=== PATIENT | male | born 1970 | race Two or more races ===

== ENCOUNTER 2025-04-29 13:07 | Inpatient (IN) | payer MEDICAID, OTHER ==
[~2025-04-29] VITALS: Ht 182.9 cm; Wt 101.0 kg
[~2025-04-29 13:07] MED LIST: LISI10TA34
--- NOTE | 2025-04-29 13:33 | ECG ---
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
[2025-04-29 13:43] LABS: Hematocrit 44.6 % (41.0-53.0); Hemoglobin 14.5 g/dL (13.5-17.5); Mean Corpuscular Hemoglobin 26.6 pg (28.0-32.0); Mean Corpuscular Volume 81.4 fL (80.0-100.0); Nucleated Red Blood Cells % 0.1 %
[2025-04-29 13:44] LABS: Chloride 104 mmol/L (98-107); Potassium 4.8 mmol/L (3.5-5.1); Sodium 141 mmol/L (136-145)
[2025-04-29 13:45] LABS: Anion Gap 5 (5-15)
[2025-04-29 13:46] LABS: Calcium 9.1 mg/dL (8.7-10.4)
[2025-04-29 13:49] LABS: Carbon Dioxide 32 mmol/L (20-31)
[2025-04-29 13:50] LABS: BUN/Creatinine Ratio 19.6 (10.0-20.0); Blood Urea Nitrogen 19 mg/dL (9-23); Glucose 86 mg/dL (74-106)
--- NOTE | 2025-04-29 13:50 | DVH ---
CLINICAL HISTORY: CP TECHNIQUE: Single view of the chest was obtained. COMPARISON: CT ANGIO CHEST - AORTA on DOS: 03/09/25, XR CHEST 1 VIEW on DOS: 03/09/25, XR CHEST 1 VIEW on DOS: 02/07/25, XR CHEST 1 VIEW on DOS: 05/26/24 FINDINGS: The heart size and pulmonary vasculature are normal. The lungs are clear. IMPRESSION: NO ACUTE CARDIOPULMONARY PROCESS.
--- NOTE | 2025-04-29 13:55 | ECG ---
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
--- NOTE | 2025-04-29 14:31 | ED.PDOC ---
History of Present Illness HPI Comments 54M BIBA w/ prior MHx of HTN, [place], High Lipids:SHx of Cardiac Stent placed recently and maria atnonia c/c of CP. Pt was picked up at a skilled nursing center due from the pt having dove left sided CP since 0600 this morning which was a 8/10 on the pain scale associated w/ N/ and dizziness. The skilled nursing center gave the pt 1 nitro which brought the pain down to 5/10. en rout to the ED the pt was given 324 of aspirin and .4mg of nitro, 4 of zofran which prompted the pain to decrease. Pt notes on not being able to take his plavix medications for the past 3 days due from being in custody. Denies any symptoms at this time. Patient denies any SOB, dizziness, numbness, weakness, tingling, fever, chills, or recent fall. Chief Complaint: Chest Pain Time Seen by MD: 14:00 Reviewed Notes: Nurses Notes, Medications, Allergies Allergies: Coded Allergies: NO KNOWN ALLERGIES (Unverified , 08/20/10) Home Meds Reported Medications Lisinopril (Lisinopril) 10 Mg Tab, DAILY 08/20/10 Information Source: Patient, Law Enforcement, Emergency Med Personnel Mode of Arrival: EMS Severity: Moderate Timing: Hours Duration: Since onset, Hours Prehospital treatment: None Past Medical History PAST MEDICAL HISTORY: High Lipids, HTN, [place] Surgical History (Other): Cardiac Stent Placed Family History Family History: Reviewed,noncontributory to illness, Unknown Social History Smoker: Non-Smoker Alcohol: Denies ETOH Use Drugs: Denies Drug Use Lives In: Home Constitutional: denies: chills, diaphoresis, fatigue, fever, malaise, sweats, weakness, others EENTM: denies: blurred vision, double vision, ear bleeding, ear discharge, ear drainage, ear pain, ear ringing, eye pain, eye redness, hearing loss, mouth pain, mouth swelling, nasal discharge, nose bleeding, nose congestion, nose pain, photophobia, tearing, throat pain, throat swelling, voice changes, others Respiratory: denies: cough, hemoptysis, orthopnea, SOB at rest, shortness of breath, SOB with excertion, stridor, wheezing, others Cardiovascular: reports: chest pain; denies: dizzy spells, diaphoresis, Dyspnea on exertion, edema, irregular heart beat, left arm pain, lightheadedness, palpitations, PND, syncope, others Gastrointestinal: reports: nausea; denies: abdomen distended, abdominal pain, blood streaked bowels, constipated, diarrhea, dysphagia, difficulty swallowing, hematemesis, melena, poor appetite, poor fluid intake, rectal bleeding, rectal pain, vomiting, others Genitourinary: denies: burning, dysuria, flank pain, frequency, hematuria, incontinence, penile discharge, penile sore, pain, testicle pain, testicle swelling, urgency, others Neurological: reports: dizziness; denies: fainting, headache, left sided numbness, left sided weakness, numbness, paresthesia, pre-existing deficit, right sided numbness, right sided weakness, seizure, speech problems, tingling, tremors, weakness, others Musculoskeletal: denies: back pain, gout, joint pain, joint swelling, muscle pain, muscle stiffness, neck pain, others Integumetry: denies: bruises, change in color, change in hair/nails, dryness, laceration, lesions, lumps, rash, wounds, others Allergic/Immunocompromised: denies: Difficulty Healing, Frequent Infections, Hives, Itching, others Hematologic/Lymphatic: denies: anemia, blood clots, easy bleeding, easy bruising, swollen glands, others Endocrine: denies: excessive hunger, excessive sweating, excessive thirst, excessive urination, flushing, intolerance to cold, intolerance to heat, unexplained weight gain, unexplained weight loss, others Psychiatric: denies: anxiety, bipolar disorder, depression, hopeless, panic disorder, schizophrenia, sleepless, suicidal, others All Other Systems: Reviewed and Negative Physical Exam General Appearance: Moderate Distress, Normal HEENT: Normal ENT Inspection, Pharynx Normal, TMs Normal Neck: Full Range of Motion, Non-Tender, Normal, Normal Inspection Respiratory: Chest Non-Tender, Lungs Clear, No Accessory Muscle Use, No Respiratory Distress, Normal Breath Sounds Cardiovascular: No Edema, No JVD, No Murmur, No Gallop, Normal Peripheral Pulses, Regular Rate/Rhythm Breast Exam: Deferred Gastrointestinal: No Organomegaly, Non Tender, No Pulsatile Mass, Normal Bowel Sounds, Soft Genitalia: Deferred Pelvic: Deferred Rectal: Deferred Extremities: No calf tenderness, Normal capillary refill, Normal inspection, Normal range of motion, Non-tender, No pedal edema Musculoskeletal : Apperance: Normal Neurologic: Alert, 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 Was a procedure done?: No Differential Dx Considerations may include: Anemia Electrolyte imbalance X-Ray, Labs, Meds, VS Vital Signs Date Time Temp Pulse Resp B/P (MAP) Pulse Ox O2 Delivery O2 Flow Rate FiO2 04/29/25 13:53 57 04/29/25 13:15 98.7 58 16 119/79 98 98.7 04/29/25 13:10 56 Lab Test 04/29/25 14:11 04/29/25 13:21 Range/Units Troponin I High Sensitivity 12 11 </=54 ng/L White Blood Count 6.6 4.4-10.8 10^3/uL Red Blood Count 5.48 4.5-5.90 10^6/uL Hemoglobin 14.5 13.5-17.5 g/dL Hematocrit 44.6 41.0-53.0 % Mean Corpuscular Volume 81.4 80.0-100.0 fL Mean Corpuscular Hemoglobin 26.6 L 28.0-32.0 pg Mean Corpuscular Hemoglobin Concent 32.6 32.0-36.0 g/dL Red Cell Distribution Width 13.9 11.8-14.3 % Platelet Count 235 140-450 10^3/uL Mean Platelet Volume 6.9 6.9-10.8 fL Neutrophils (%) (Auto) 53.3 37.0-80.0 % Lymphocytes (%) (Auto) 25.0 10.0-50.0 % Monocytes (%) (Auto) 10.5 0.0-12.0 % Eosinophils (%) (Auto) 10.2 H 0.0-7.0 % Basophils (%) (Auto) 1.0 0.0-2.0 % Neutrophils # (Auto) 3.5 1.6-8.6 10 ^3/uL Lymphocytes # (Auto) 1.7 0.4-5.4 10 ^3/uL Monocytes # (Auto) 0.7 0-1.3 10 ^3/uL Eosinophils # (Auto) 0.7 0-0.8 10 ^3/uL Basophils # (Auto) 0.1 0-0.2 10 ^3/uL Nucleated Red Blood Cells 0.1 % Sodium Level 141 136-145 mmol/L Potassium Level 4.8 3.5-5.1 mmol/L Chloride Level 104 98-107 mmol/L Carbon Dioxide Level 32 H 20-31 mmol/L Anion Gap 5 5-15 Blood Urea Nitrogen 19 9-23 mg/dL Creatinine 0.97 0.700-1.30 mg/dL Glomerular Filtration Rate Calc 93 >90 mL/min BUN/Creatinine Ratio 19.6 10.0-20.0 Serum Glucose 86 74-106 mg/dL Calcium Level 9.1 8.7-10.4 mg/dL Patient alert. Complaining of chest discomfort. Vitals stable. Answering questions. History of coronary artery disease with stent placement. WBC within normal limits. Hemoglobin within normal limits. Cardiac marker within normal limits. EKG reviewed does show old changes. Was given aspirin. Was given nitro. Was given morphine. Was given Zofran. Explained to the patient. Continue monitoring. Time of 1ST Reevaluation: 14:30 Reevaluation 1ST: Unchanged Patient Education/Counseling: Diagnosis, Treatment, Prognosis Family Education/Counseling: Diagnosis, Treatment, Prognosis, Other (SO) SEPSIS Sepsis Screen Date sepsis recognized/suspect: Apr 29, 2025 Time Sepsis recognized/suspect: 1314 Recent Procedure: No On Antibiotic Therapy: No Respiratory Rate >20: No Heart Rate >90: No Temp<36 C (96.8 F) or >38.3 C: No SBP <90 or MAP <65 mmHG: No New Acute Mental Status Change: No Is the patient on CPAP, BIPAP,: No Physician Orders Chest Portable (04/29/25 13:11) Troponin-I Hs (04/29/25 16:11) Electrocardigram (04/29/25 16:11) Vital Signs Date Time Temp Pulse Resp B/P (MAP) Pulse Ox O2 Delivery O2 Flow Rate FiO2 04/29/25 13:53 57 04/29/25 13:15 98.7 58 16 119/79 98 98.7 04/29/25 13:10 56 Laboratory Tests Test 04/29/25 13:21 White Blood Count 6.6 10^3/uL (4.4-10.8) Departure 1 Departure Time of Disposition: 15:18 Impression: Primary Impression: Chest pain of unknown etiology Disposition: ADMITTED INPATIENT Admit to: Med Surg Condition: Guarded Critical Care Note Critical Care Time?: Yes (90 min-critical care time only) Stability Stability form required: No Heart Score Heart Score: Heart Score Response (Comments) Value History Slightly Suspicious 0 EKG Normal 0 Age 45-64 1 Risk Factors >3 or Hx ASHD 2 Troponin Normal limit 0 Total 3 I personally scribed for RANI VALDOVINOS MD ([email or web address]) on 04/29/25 at 14:31. Electronically submitted by Ranjan Ward ([email or web address]). RANI VALDOVINOS MD Apr 29, 2025 14:31
[2025-04-29] MEDS: NITROGLYCERIN 0.4 MG SL TAB SL ONE (15:31)
[2025-04-29 17:08] VITALS: O2SAT 98
[2025-04-29] MEDS: ONDANSETRON HCL 4 MG/2 ML VIAL IV ONE (18:59)
[2025-04-29] MEDS: MORPHINE SULFATE 4 MG/ML SYR/VIAL IV ONE (19:02)
[2025-04-29 19:20] VITALS: PULSE 72; O2SAT 98
--- NOTE | 2025-04-29 22:30 | DVHHPRES ---
History of Present Illness Resident Creating Document: KAT BUNCH RESIDENT History of Present Illness This is a 54-year-old male with past medical history of HTN, NH s/p 2 stent month ago in [facility], HLD growth by EMS due to substernal chest pain which started 2 days and worsen since morning, 8/10 intensity, localized, pressure sensation, aggravated on movement and mild relieved on nitroglycerin sublingual tablets. Patient receives nitroglycerin and aspirin [address] to hospital and now chest pain trending down to 4/10 intensity. Patient also stated, another 2 cardiac stent placed 05/2024 in [facility]. Patient currently denies any fever, headache, SOB, cough, abdominal pain, dysuria or any focal weakness. Past medical history: As above Past surgical history: Angiogram x2 (05/2024 and 03/2025) Personal history: Cigarette smoking and quit years ago, ETOH use, denies any illicit drugs Family history: Nothing contributory Allergy: No known allergy PCP: Not selected Home medication: Aspirin, Plavix, metoprolol, atorvastatin. Review of Systems Constitutional: Yes: Malaise; No: Fever, Chills, Sweats, Weakness, Other Eyes: No: Pain, Vision change, Conjunctivae inflammation, Eyelid inflammation, Other, Redness ENT: No: Ear pain, Ear discharge, Nose pain, Nose discharge, Nose congestion, Mouth pain, Mouth swelling, Throat pain, Throat swelling, Other Respiratory: No: Cough, Dry, Shortness of breath, SOB with excertion, Wheezing, Hemoptysis, Pleuritic Pain, Sputum, Wheezing, Other Cardiovascular: Chest Pain, Lt Headedness; No: Palpitations, Orthopnea, Paroxysmal Noc. Dyspnea, Edema, Other Gastrointestinal: No: Nausea, Vomiting, Abdominal Pain, Diarrhea, Constipation, Melena, Hematochezia, Other Genitourinary: No Dysuria, No Frequency, No Incontinence, No Hematuria, No Retention, No Other Musculoskeletal: No: other, neck pain, shoulder pain, arm pain, back pain, hand pain, leg pain, foot pain Skin: No: Rash, Lesions, Jaundice, Bruising, Other Neurological: No: Weakness, Numbness, Incoordination, Change in speech, Confusion, Seizures, Other Allergies: Coded Allergies: NO KNOWN ALLERGIES (Unverified , 08/20/10) Exam Vital Signs Vital Signs Date Time Temp Pulse Resp B/P (MAP) Pulse Ox O2 Delivery O2 Flow Rate FiO2 04/29/25 22:00 72 17 112/75 (87) 97 04/29/25 19:20 Room Air* 0 21 04/29/25 19:20 97.7 97.7 General Appearance: Alert, Oriented X3, Cooperative, mild distress HEENT: Atraumatic, PERRLA, EOMI Respiratory: Clear to auscultation, Normal air movement Cardiovascular: Regular rate, Normal S1, Normal S2, Other (Sternal area tender on deep palpation) Abdominal: Normal bowel sounds, Soft, No tenderness, No hepatospenomegaly Extremities: No clubbing, No cyanosis, No edema, Normal pulses Skin: No rashes, No breakdown, No significant lesion Neuro: Normal gait, Normal speech, Strength at 5/5 X4 ext, Sensation intact Labs/Xrays Labs Test 04/29/25 16:14 04/29/25 13:21 Range/Units Troponin I High Sensitivity 11 </=54 ng/L White Blood Count 6.6 4.4-10.8 10^3/uL Red Blood Count 5.48 4.5-5.90 10^6/uL Hemoglobin 14.5 13.5-17.5 g/dL Hematocrit 44.6 41.0-53.0 % Mean Corpuscular Volume 81.4 80.0-100.0 fL Mean Corpuscular Hemoglobin 26.6 L 28.0-32.0 pg Mean Corpuscular Hemoglobin Concent 32.6 32.0-36.0 g/dL Red Cell Distribution Width 13.9 11.8-14.3 % Platelet Count 235 140-450 10^3/uL Mean Platelet Volume 6.9 6.9-10.8 fL Neutrophils (%) (Auto) 53.3 37.0-80.0 % Lymphocytes (%) (Auto) 25.0 10.0-50.0 % Monocytes (%) (Auto) 10.5 0.0-12.0 % Eosinophils (%) (Auto) 10.2 H 0.0-7.0 % Basophils (%) (Auto) 1.0 0.0-2.0 % Neutrophils # (Auto) 3.5 1.6-8.6 10 ^3/uL Lymphocytes # (Auto) 1.7 0.4-5.4 10 ^3/uL Monocytes # (Auto) 0.7 0-1.3 10 ^3/uL Eosinophils # (Auto) 0.7 0-0.8 10 ^3/uL Basophils # (Auto) 0.1 0-0.2 10 ^3/uL Nucleated Red Blood Cells 0.1 % Sodium Level 141 136-145 mmol/L Potassium Level 4.8 3.5-5.1 mmol/L Chloride Level 104 98-107 mmol/L Carbon Dioxide Level 32 H 20-31 mmol/L Anion Gap 5 5-15 Blood Urea Nitrogen 19 9-23 mg/dL Creatinine 0.97 0.700-1.30 mg/dL Glomerular Filtration Rate Calc 93 >90 mL/min BUN/Creatinine Ratio 19.6 10.0-20.0 Serum Glucose 86 74-106 mg/dL Calcium Level 9.1 8.7-10.4 mg/dL SEPSIS Sepsis Screen Date sepsis recognized/suspect: Apr 29, 2025 Time Sepsis recognized/suspect: 1919 Recent Procedure: No On Antibiotic Therapy: No Respiratory Rate >20: No Heart Rate >90: No Temp<36 C (96.8 F) or >38.3 C: No SBP <90 or MAP <65 mmHG: No New Acute Mental Status Change: No Is the patient on CPAP, BIPAP,: No Vital Signs Date Time Temp Pulse Resp B/P (MAP) Pulse Ox O2 Delivery O2 Flow Rate FiO2 04/29/25 22:00 72 17 112/75 (87) 97 04/29/25 19:20 72 98 Room Air* 0 21 04/29/25 19:20 97.7 54 13 121/80 (94) 98 97.7 04/29/25 19:15 60 16 126/86 (99) 96 04/29/25 19:02 63 19 128/86 04/29/25 17:08 98 Room Air* 0 21 04/29/25 17:08 97.5 65 16 125/84 (98) 98 97.5 04/29/25 16:18 111/76 04/29/25 15:31 121/81 Laboratory Tests Test 04/29/25 13:21 White Blood Count 6.6 10^3/uL (4.4-10.8) Medications Medications Dose Ordered Sig/Chacorta Route Start Time Stop Time Status Last Admin Dose Admin Aspirin 325 mg ONCE ONCE PO 04/29/25 15:30 04/29/25 15:31 DC 04/29/25 19:00 325 MG Morphine Sulfate 4 mg ONCE ONCE IV 04/29/25 15:30 04/29/25 15:31 DC 04/29/25 19:02 4 MG Nitroglycerin 0.4 mg ONCE ONCE SL 04/29/25 15:30 04/29/25 15:31 DC 04/29/25 15:31 0.4 MG Ondansetron HCl 4 mg ONCE ONCE IV 04/29/25 15:30 04/29/25 15:31 DC 04/29/25 18:59 4 MG Assessment/Plan Assessment/Plan Chest pain rule out acute coronary syndrome History of NH s/p coronary stent Hypertensive heart disease Hyperlipidemia Costochondritis In ER patient received nitroglycerin, aspirin, ondansetron, morphine EKG: HR 56, QTC 440, no acute ST changes Troponin: 11> 12> 11 CXR: No acute cardiopulmonary disease Aspirin Plavix Metoprolol Atorvastatin Echocardiogram Follow labs Bradycardia EKG: HR 56, QTC 440, no acute ST changes Follow vitals Diet: Cardiac GI prophylaxis: Famotidine DVT prophylax: Lovenox Goals of care discussions. More than 27 minute spent with patient. Full code status. Case discussed with Dr. Alvarez Plan discussed with: Patient, Other (Nurse) Date of Service: Apr 29, 2025 Billing Provider: JACY ALVAREZ MD Common Visit Codes: [id number] INP/OBS CARE (HIGH) Secondary Visit Codes: [id number] CARE PLAN 30 MINUTES KAT BUNCH RESIDENT Apr 29, 2025 22:30
[2025-04-29] MEDS: CLOPIDOGREL BISULFATE 75 MG TAB PO ONE (22:58)
[2025-04-29] MEDS: ATORVASTATIN 20 MG TAB PO ONE (22:58)
[2025-04-29] MEDS: SODIUM CHLORIDE 0.9% 1,000 ML IV SCH (22:58)
[2025-04-29 23:30] VITALS: BP 143/95; PULSE 68; RESP 17; TEMP 97.8; O2SAT 97
[2025-04-30] VITALS (8 sets, daily range): BP systolic 109–143; BP diastolic 74–96; PULSE 52–80; RESP 17–18; TEMP 97.7–98.9; O2SAT 96–98
[2025-04-30 05:56] LABS: Hemoglobin 13.7 g/dL (13.5-17.5)
[2025-04-30 05:58] LABS: Hematocrit 40.4 % (41.0-53.0); Mean Corpuscular Hemoglobin 27.4 pg (28.0-32.0); Mean Corpuscular Volume 80.4 fL (80.0-100.0); Nucleated Red Blood Cells % 0.2 %
[2025-04-30 06:16] LABS: Alanine Aminotransferase 24 U/L (7-40); Albumin 3.6 g/dL (3.2-4.8); Alkaline Phosphatase 76 U/L (46-116); Anion Gap 8 (5-15); BUN/Creatinine Ratio 17.1 (10.0-20.0); Blood Urea Nitrogen 18 mg/dL (9-23); Calcium 8.7 mg/dL (8.7-10.4); Carbon Dioxide 28 mmol/L (20-31); Chloride 106 mmol/L (98-107); Glucose 75 mg/dL (74-106); Potassium 3.8 mmol/L (3.5-5.1); Sodium 142 mmol/L (136-145); Total Protein 6.2 g/dL (5.7-8.2)
[2025-04-30 06:17] LABS: Bilirubin, Total 0.3 mg/dL (0.2-1.0); Cholesterol 137 mg/dL (< 200)
[2025-04-30 06:27] LABS: HDL Cholesterol 30 mg/dL (40-59); Triglycerides 207 mg/dL (< 150)
[2025-04-30] MEDS: FAMOTIDINE 20 MG TAB PO SCH (11:50)
[2025-04-30] MEDS: CLOPIDOGREL BISULFATE 75 MG TAB PO SCH (11:51)
[2025-04-30] MEDS: ASPirin-EC 81 mg tab PO SCH (11:52)
[2025-04-30] MEDS: METOPROLOL SUCCINATE XL 50 MG TAB PO SCH (11:52)
[2025-04-30] MEDS: ENOXAPARIN SOD 40 MG/0.4 ML SYRINGE SC SCH (11:53)
--- NOTE | 2025-04-30 12:20 | DVHINCON2 ---
ANNALEE LEE EDITOR TRADE JOURNAL 04/30/25 1220: Date Seen: Apr 30, 2025 Referring Physician MD [place] resident Reason for Consultation Chest pain, recent PCI with stent History of Present Illness This is a 54-year-old male patient who presents to the emergency room with chief complaint of chest pain. The patient comes from [facility]. He reports chest pain that began approximately four days ago. He describes the pain as unprovoked, intermittent, sharp in nature, left-sided and nonradiating. Associated symptoms include shortness of breath. Alleviating factors include nitroglycerin and morphine administration. The patient reports undergoing a recent stent placement (x 2 JANEL) at [facility] last month. He states that the [facility] has not been providing him with his aspirin and Plavix for approximately one week. Initial twelve lead electrocardiogram reveals sinus bradycardia with Q-waves seen in inferior leads and nonspecific ST depression to lateral leads. Initial troponin level of 11ng/L with flat trend thereafter. Significant past medical history includes coronary artery disease status post PTCA x 4 JANEL (on ASA/Plavix), myocardial infarction, hypertension, and dyslipidemia. Past Medical History Past medical history reviewed. No other significant than mentioned above. Past Surgical History Coronary angiogram status post PCI X 2 JANEL at [facility] (Mar 2025) Coronary angiogram status post PCI X 2 JANEL at [facility] (May 2024) Family History Family history reviewed. Social History Patient has a 20 pack-year history, quit smoking approximately one year ago Denies illicit drug use Denies alcohol use Allergies: Coded Allergies: NO KNOWN ALLERGIES (Unverified , 08/20/10) Home Meds Reported Medications Lisinopril (Lisinopril) 10 Mg Tab, DAILY 08/20/10 Home Meds Home medications reviewed. Current Medications Current Medications Medications (Trade) Dose Ordered Sig/Chacorta Route PRN Reason Start Time Stop Time Status Last Admin Sodium Chloride 1,000 ml @ 60 mls/hr [id number] IV 04/29/25 22:30 04/30/25 09:43 DC 04/29/25 22:58 Enoxaparin Sodium (Lovenox) 40 mg DAILY SC 04/30/25 10:00 04/30/25 11:53 Acetaminophen (Tylenol Tablet) 650 mg Q6HP PRN PO PAIN SCALE 1-3 OR TEMP>100.4 04/29/25 22:30 Nitroglycerin (Ntrostat Sublingual) 0.4 mg Q5MINP PRN SL FOR CHEST PAIN 04/29/25 22:30 Morphine Sulfate 2 mg Q30M PRN IV FOR CHEST PAIN 04/29/25 22:30 Metoprolol Succinate (Toprol Xl) 50 mg DAILY PO 04/30/25 10:00 04/30/25 11:52 Aspirin (Ecotrin Enteric Coated Tablet) 81 mg DAILY PO 04/30/25 10:00 04/30/25 11:52 Clopidogrel Bisulfate (Plavix) 75 mg DAILY PO 04/30/25 10:00 04/30/25 11:51 Famotidine (Pepcid Tablet) 20 mg Q12HR PO 04/30/25 10:00 04/30/25 11:50 Atorvastatin Calcium (Lipitor) 40 mg HS PO 04/30/25 22:00 Review of Systems Constitutional: No symptom reported Ears, Nose, & Throat: No symptom reported Eyes: No symptom reported Neurological: No symptoms reported Pulmonary/Respiratory: Shortness of breath Cardiovascular: Chest pain Gastrointestinal: No symptom reported Genitourinary: No symptom reported Musculoskeletal: No symptom reported Skin: No symptom reported Psychiatric: No symptom reported Endocrine: No symptom reported Hematologic/Lymphatic: No symptom reported Vital Signs Vital Signs Date Time Temp Pulse Resp B/P (MAP) Pulse Ox O2 Delivery O2 Flow Rate FiO2 04/30/25 11:52 62 115/76 04/30/25 09:00 98.9 17 96 98.9 04/30/25 00:09 Room Air* 0 21 Physical Exam General Appearance: Cooperative. Well-developed. Well-nourished. No acute distre ss. Pulmonary/Respiratory: Clear, bilateral breaths sounds. Cardiovascular/Chest: Regular rate and rhythm. Peripheral Pulses: 2+ Radial (R). 2+ Radial (L). 2+ Pedal (R). 2+ Pedal (L) Abdominal Exam: Normal bowel sounds. Ankle Exam: Negative ankle edema Lower extremities: Negative lower extremity edema Neuro/Mental Status: A/OX4, coherent. Thoughts/Psych: Normal thought pattern. Appropriate mood and affect. Good judgment and insight. Appearance: No acute distress. Skin Exam: Normal inspection. Normal color. Warm and dry. Labs/Diagnostic Data Labs Test 04/30/25 04:40 11/26/25 16:14 Range/Units White Blood Count 5.9 4.4-10.8 10^3/uL Red Blood Count 5.02 4.5-5.90 10^6/uL Hemoglobin 13.7 13.5-17.5 g/dL Hematocrit 40.4 L 41.0-53.0 % Mean Corpuscular Volume 80.4 80.0-100.0 fL Mean Corpuscular Hemoglobin 27.4 L 28.0-32.0 pg Mean Corpuscular Hemoglobin Concent 34.1 32.0-36.0 g/dL Red Cell Distribution Width 13.6 11.8-14.3 % Platelet Count 209 140-450 10^3/uL Mean Platelet Volume 7.3 6.9-10.8 fL Neutrophils (%) (Auto) 45.3 37.0-80.0 % Lymphocytes (%) (Auto) 31.2 10.0-50.0 % Monocytes (%) (Auto) 11.9 0.0-12.0 % Eosinophils (%) (Auto) 10.6 H 0.0-7.0 % Basophils (%) (Auto) 1.0 0.0-2.0 % Neutrophils # (Auto) 2.7 1.6-8.6 10 ^3/uL Lymphocytes # (Auto) 1.9 0.4-5.4 10 ^3/uL Monocytes # (Auto) 0.7 0-1.3 10 ^3/uL Eosinophils # (Auto) 0.6 0-0.8 10 ^3/uL Basophils # (Auto) 0.1 0-0.2 10 ^3/uL Nucleated Red Blood Cells 0.2 % Sodium Level 142 136-145 mmol/L Potassium Level 3.8 3.5-5.1 mmol/L Chloride Level 106 98-107 mmol/L Carbon Dioxide Level 28 20-31 mmol/L Anion Gap 8 5-15 Blood Urea Nitrogen 18 9-23 mg/dL Creatinine 1.05 0.700-1.30 mg/dL Glomerular Filtration Rate Calc 84 >90 mL/min BUN/Creatinine Ratio 17.1 10.0-20.0 Serum Glucose 75 74-106 mg/dL Hemoglobin A1c 5.3 <5.7 % A1C Calcium Level 8.7 8.7-10.4 mg/dL Total Bilirubin 0.3 0.2-1.0 mg/dL Aspartate Amino Transferase (AST) 19 13-40 U/L Alanine Aminotransferase (ALT) 24 7-40 U/L Alkaline Phosphatase 76 46-116 U/L Total Protein 6.2 5.7-8.2 g/dL Albumin 3.6 3.2-4.8 g/dL Triglycerides Level 207 H < 150 mg/dL Cholesterol Level 137 < 200 mg/dL LDL Cholesterol 76 < 100 mg/dL HDL Cholesterol 30 L 40-59 mg/dL Vitamin B12 Level 457 211-911 pg/mL Vitamin D 25-Hydroxy 25.3 L 30.0-100 ng/mL Thyroid Stimulating Hormone (TSH) 1.15 0.55-4.78 uIU/mL Troponin I High Sensitivity 11 </=54 ng/L Assessment Chest pain, rule out InStent restenosis/thrombosis Coronary artery disease s/p PTCA x 4 JANEL (on Plavix and aspirin) History myocardial infarction Hypertension Dyslipidemia Plan/Recommendation We will continue with the following plan/recommendations (Dr. Min): * Transthoracic echocardiogram to evaluate cardiac function * Chest pain protocol * HEART score: 5 points * Continue dual antiplatelet therapy * Lipid-lowering agent * BP control * Close cardiac surveillance * Nuclear stress test Patient seen and evaluated at bedside with . The patient was offered an inpatient nuclear stress test. Patient is agreeable. We will schedule the patient at soonest availability. Thank you for allowing us to care for this patient. Please call with any questions or concerns. Critical care time spent: 44 minutes This medical document was created using an electronic medical record system with voice recognition software and computerized dictation system. Although this document has been carefully reviewed, there might still be some phonetic and typographical errors. Occasional wrong-word or ``sound-alike substitutions may have occurred due to the inherent limitations of voice recognition software. These areas are purely typographical due to imperfections of the software programs and do not reflect any compromise in the patient's medical care. Pl ease read the chart carefully and recognize, using context, where these substitutions have occurred. Plan discussed with: Patient NYHA Physical activity limitations: NA Date of Service: Apr 30, 2025 Billing Provider: ANNALEE LEE Cardiology Common Codes: [id number] INP/OBS CARE (High) Cardiology Consultation Codes: [id number] CONSULT <45MIN PREM MIN MD 04/30/25 1532: Allergies: Coded Allergies: NO KNOWN ALLERGIES (Unverified , 08/20/10) Home Meds Reported Medications Lisinopril (Lisinopril) 10 Mg Tab, DAILY 08/20/10 Plan/Recommendation chest pain seen with [employer] and agree with assessment and plan ruled out for acs [facility]nt [facility] just had pci done 1 month ago , no other information regarding this lexiscan s tress mpi once stress lab is open Plan discussed with: Patient LEEANNALEE PENALOZA Lindsey EDITOR TRADE JOURNAL Apr 30, 2025 12:20 PREM MIN MD Apr 30, 2025 15:32
--- NOTE | 2025-04-30 14:01 | DVHSR ---
APPROVED REPORT EXAM: Two-dimensional and M-mode echocardiogram with Doppler and color Doppler. Blood Pressure: 131/88 mmHg INDICATION Chest Pain History of Coronary Stent RISK FACTORS Height: 6', Weight: 222 DIMENSIONS LVDd 4.9 (3.8-5.7cm) LA (2D) 4.0 (1.9-4.0cm) Aortic Root 4.0 (2.0-3.7cm) LVDs 3.4 (2.5-4.0cm) LA (MM) (1.9-4.0cm) Aortic Cusp Exc 2.1 (1.5-2.0cm) EF (%) 57.0 (55-70%) Rt. Atrium 4.2 (1.9-4.0cm) Asc. Aorta cm IVSd 1.1 (0.7-1.1cm) RV (D) (1.8-2.4cm) PWd 1.0 (0.7-1.1cm) Mitral Valve Mitral Mitral Stenosis E wave 0.50m/s MV Mean GR. mmHg A wave 1.00m/s MV Peak GR. mmHg E/A ratio 0.5 2D MVA cm2 Aortic Valve Aortic Valve Aortic Stenosis V1 0.90m/s AO Mean GR. 5mmHg V2 1.50m/s AO Peak GR. 9mmHg LVOT Diameter 2.3 (1.8-2.4cm) Doppler PATTIE 2.49cm2 Pulmonic Valve V2 0.90m/s Tricuspid Valve TR Velocity 2.30m/s RVSP 30mmHg Conclusion lvef 55% mild to moderate LVH normal rv function no severe valve abnromality noted
--- NOTE | 2025-04-30 15:55 | DVHPNRES ---
Progress Note Date Seen: Apr 30, 2025 Resident Creating Document: CECILIA BUSTILLOS RESIDENT Medical Necessity Reason Pt with a Central, PICC or Fol: No Subjective Review of Systems Conrad Mejia is a 54-year-old male with past medical history of hypertension, CAD s/p PCI with 4 stents (with 2 stents being placed last month), dyslipidemia was brought in from the [facility] into the ED with the chief complaint of chest pain. The patient mentions he started having chest pain 1 week back, which has been constant, left-sided, nonradiating, pressure-like, rated 8/10 in intensity, which increased on exertion. The patient also mentions having shortness of breath since 1 week. He denies any cough or fever. The pain was relieved with nitroglycerin. The patient has a history of placement of 2 stents in May 2024 in [facility] and 2 stent was placed at [facility] last month. The patient mentions he did not get his aspirin and Plavix since [facility] at the [facility]. Echo revealed LVEF of 55% with [id number] LVH. Cardiology evaluated the patient and recommended Cardiolite stress test at the earliest possible availability. Past medical history: hypertension, CAD s/p PCI with 4 stents (with 2 stents being placed last month), dyslipidemia Past surgical history: Angiogram x2 (05/2024 and 03/2025) Personal history: Cigarette smoking 30 pack years, history of heavy alcohol use in the past , denies any illicit drugs Family history: Nothing contributory Allergy: No known allergy Patient seen and examined at bedside. Patient is alert and oriented to time, place person and responding to all questions. Eyes: No Pain, No Vision change, No Conjunctivae inflammation, No Eyelid inflammation, No Redness ENT: No Ear pain, No Ear discharge, No Nose pain, No Nose discharge, No Nose congestion, No Mouth pain, No Mouth swelling, No Throat pain, No Throat swelling Cardiovascular: Chest Pain, No Palpitations, No Orthopnea, No Paroxysmal No Dyspnea, No Edema, No Lt Headedness Respiratory: No Cough, No Dry, Shortness of breath, SOB with exertion, No Wheezing, No Hemoptysis, No Pleuritic Pain, No Sputum Gastrointestinal: No Nausea, No Vomiting, No Abdominal Pain, No Diarrhea, No Constipation, No Melena, No Hematochezia Genitourinary: No Dysuria, No Frequency, No Incontinence, No Hematuria, No Retention Objective vital signs Vital Sign Date Time Temp Pulse Resp B/P (MAP) Pulse Ox O2 Delivery O2 Flow Rate FiO2 04/30/25 13:00 97.7 72 18 113/83 (93) 98 97.7 04/30/25 00:09 Room Air* 0 21 Total Intake and Output 04/29/25 04/29/25 04/30/25 15:00 23:00 07:00 Intake Total 550 ml Balance 550 ml medications Current Medications Medications Dose Ordered Sig/Chacorta Route Start Time Stop Time Status Last Admin Dose Admin Enoxaparin Sodium 40 mg DAILY SC 04/30/25 10:00 04/30/25 11:53 40 MG Acetaminophen 650 mg Q6HP PRN PO 04/29/25 22:30 Nitroglycerin 0.4 mg Q5MINP PRN SL 04/29/25 22:30 Morphine Sulfate 2 mg Q30M PRN IV 04/29/25 22:30 Metoprolol Succinate 50 mg DAILY PO 04/30/25 10:00 04/30/25 11:52 50 MG Aspirin 81 mg DAILY PO 04/30/25 10:00 04/30/25 11:52 81 MG Clopidogrel Bisulfate 75 mg DAILY PO 04/30/25 10:00 04/30/25 11:51 75 MG Famotidine 20 mg Q12HR PO 04/30/25 10:00 04/30/25 11:50 20 MG Atorvastatin Calcium 40 mg HS PO 04/30/25 22:00 Examination General Appearance: Cooperative. Well developed. Well nourished. NAD Head Exam: Normal inspection Neck Exam: Normal inspection. Non-tender. Normal alignment Pulmonary/Respiratory: Chest non-tender. Clear bilateral breath sounds, no crackles, no wheezing. Cardiovascular/Chest: Regular rate and rhythm. No murmurs. No JVD. Peripheral Pulses: 2+ Radial (R). 2+ Radial (L). 2+ Pedal (R). 2+ Pedal (L) Abdominal Exam: Normal bowel sounds. Soft. normal abdomen, no visible veins, Nontender. No hepatospenomegaly. No masses Ankle Exam: Negative ankle edema Lower extremities: Negative lower extremity edema Neuro/Mental Status: A&O x4. Coherent. Thoughts/Psych: Normal thought pattern. Appropriate mood and affect. Good judgement and insight Skin Exam: Normal inspection. Normal color. Warm. Dry laboratory and microbiology Laboratory Tests 04/30/25 04:40 Test 04/30/25 04:40 Range/Units Serum Glucose 75 74-106 mg/dL Labs and/or images reviewed: Labs reviewed by me, Image(s) reviewed by me Problem List/Assessment/Plan Problem List/Assessment/Plan # Chest pain, rule out acute coronary syndrome # History of [place] s/p PTCA x 4 JANEL # Hypertensive heart disease # Hyperlipidemia # Costochondritis, rule out # Dyslipidemia -EKG: no acute ST changes -Troponin: 11> 12> 11 -CXR: No acute cardiopulmonary disease -Aspirin 81 mg p.o. daily and Plavix 75 mg hs p.o., Lipitor 40 hs p.o. -Metoprolol 50 mg daily p.o. -Echocardiogram- LVEF 55%, [id number] LVH -cardiology on board, recommend Cardiolite stress test at the earliest possible availability # Vitamin D deficiency - vit D level is 25.3 - start vit D 50,000 units weekly Diet: Cardiac GI prophylaxis: Famotidine DVT prophylax: Lovenox Goals of care: Full code, discussed for >16 minutes Plan discussed with patient Plan discussed with Dr. Dorman Plan discussed with: Patient My Orders My Orders Orders - CECILIA BUSTILLOS RESIDENT Procedure Category Date Status Time Drug Screen LAB 04/30/25 Logged 07:01 Urinalysis LAB 04/30/25 Logged 07:01 Covid19 Antigen Leena LAB 04/30/25 Logged Rapid Influenza A&B LAB 04/30/25 Logged 09:47 * Cardiology Consult CONS 04/30/25 Transmitted 10:05 PTPTT LAB 04/30/25 Logged 15:17 Date of Service: Apr 30, 2025 Billing Provider: ASIA DORMAN MD Common Visit Codes: [id number] INP/OBS CARE(HIGH) CECILIA BUSTILLOS RESIDENT Apr 30, 2025 15:55 ASIA DORMAN MD May 01, 2025 21:08
[2025-04-30 16:10] LABS: INR 1.03 (0.9-1.15); Partial Thromboplastin Time 26.7 SEC (24.5-34.5); Prothrombin Time 10.9 sec (9.3-11.8)
[2025-04-30] MEDS: ERGOCALCIFEROL 50,000 UNIT(1.25MG) CAP PO SCH (17:08)
[2025-04-30 17:55] LABS: COVID19 ANTIGEN SOFIA FIA NEGATIVE (NEGATIVE)
[2025-04-30] MEDS: ATORVASTATIN 20 MG TAB PO SCH (21:05)
[2025-05-01] VITALS (8 sets, daily range): BP systolic 113–146; BP diastolic 80–97; PULSE 59–77; RESP 16–18; TEMP 97.2–98.6; O2SAT 95–100
[2025-05-01 09:04] LABS: Hematocrit 43.8 % (41.0-53.0); Hemoglobin 14.7 g/dL (13.5-17.5); Mean Corpuscular Hemoglobin 27.0 pg (28.0-32.0); Mean Corpuscular Volume 80.4 fL (80.0-100.0); Nucleated Red Blood Cells % 0.2 %
[2025-05-01 09:10] LABS: Chloride 106 mmol/L (98-107); Potassium 4.5 mmol/L (3.5-5.1); Sodium 141 mmol/L (136-145)
[2025-05-01 09:11] LABS: Anion Gap 6 (5-15); Calcium 9.2 mg/dL (8.7-10.4); Carbon Dioxide 29 mmol/L (20-31)
[2025-05-01 09:16] LABS: BUN/Creatinine Ratio 15.7 (10.0-20.0); Blood Urea Nitrogen 16 mg/dL (9-23); Glucose 83 mg/dL (74-106)
[2025-05-01] MEDS: ONDANSETRON HCL 4 MG/2 ML VIAL IV PRN (11:13)
[2025-05-01] MEDS: MORPHINE SULFATE INJ 2 MG/ml SYRG IV PRN (11:18)
--- NOTE | 2025-05-01 16:02 | DVHPNRES ---
Progress Note Date Seen: May 01, 2025 Resident Creating Document: CECILIA BUSTILLOS RESIDENT Medical Necessity Reason Pt with a Central, PICC or Fol: No Subjective Review of Systems Conrad Mejia is a 54-year-old male with past medical history of hypertension, CAD s/p PCI with 4 stents (with 2 stents being placed last month), dyslipidemia was brought in from the [facility] into the ED with the chief complaint of chest pain. The patient mentions he started having chest pain 1 week back, which has been constant, left-sided, nonradiating, pressure-like, rated 8/10 in intensity, which increased on exertion. The patient also mentions having shortness of breath since 1 week. He denies any cough or fever. The pain was relieved with nitroglycerin. The patient has a history of placement of 2 stents in May 2024 in [facility] and 2 stent was placed at [facility] last month. The patient mentions he did not get his aspirin and Plavix [facility] Echo revealed LVEF of 55% with [id number] LVH. Cardiology evaluated the patient and recommended Cardiolite stress test at the earliest possible availability. Past medical history: hypertension, CAD s/p PCI with 4 stents (with 2 stents being placed last month), dyslipidemia Past surgical history: Angiogram x2 (05/2024 and 03/2025) Personal history: Cigarette smoking 30 pack years, history of heavy alcohol use in the past , denies any illicit drugs Family history: Nothing contributory Allergy: No known allergy Patient seen and examined at bedside. Patient is alert and oriented to time, place person and responding to all questions. Eyes: No Pain, No Vision change, No Conjunctivae inflammation, No Eyelid inflammation, No Redness ENT: No Ear pain, No Ear discharge, No Nose pain, No Nose discharge, No Nose congestion, No Mouth pain, No Mouth swelling, No Throat pain, No Throat swelling Cardiovascular: Chest Pain, No Palpitations, No Orthopnea, No Paroxysmal No Dyspnea, No Edema, No Lt Headedness Respiratory: No Cough, No Dry, Shortness of breath, SOB with exertion, No Wheezing, No Hemoptysis, No Pleuritic Pain, No Sputum Gastrointestinal: No Nausea, No Vomiting, No Abdominal Pain, No Diarrhea, No Constipation, No Melena, No Hematochezia Genitourinary: No Dysuria, No Frequency, No Incontinence, No Hematuria, No Retention 05/01/25- the patient was seen at bedside today. He had no new complaints. We will continue with the same management. Telemetry was reviewed. Was placed NPO in the morning for possible Cardiolite stress test today, but we were informed the Cardiolite stress test will be done on Sunday. We will keep the patient under observation with medical management till the Cardiolite stress test can be done. Questions and concerns were answered. Objective vital signs Vital Sign Date Time Temp Pulse Resp B/P (MAP) Pulse Ox O2 Delivery O2 Flow Rate FiO2 05/01/25 12:00 62 18 146/96 05/01/25 09:00 98.6 98 98.6 05/01/25 08:15 Room Air* 0 21 Total Intake and Output 04/30/25 04/30/25 05/01/25 15:00 23:00 07:00 Intake Total 480 ml Balance 480 ml medications Current Medications Medications Dose Ordered Sig/Chacorta Route Start Time Stop Time Status Last Admin Dose Admin Enoxaparin Sodium 40 mg DAILY SC 04/30/25 10:00 05/01/25 10:00 40 MG Acetaminophen 650 mg Q6HP PRN PO 04/29/25 22:30 Nitroglycerin 0.4 mg Q5MINP PRN SL 04/29/25 22:30 Morphine Sulfate 2 mg Q30M PRN IV 04/29/25 22:30 05/01/25 11:18 2 MG Metoprolol Succinate 50 mg DAILY PO 04/30/25 10:00 05/01/25 10:00 50 MG Aspirin 81 mg DAILY PO 04/30/25 10:00 05/01/25 10:00 81 MG Clopidogrel Bisulfate 75 mg DAILY PO 04/30/25 10:00 05/01/25 10:00 75 MG Famotidine 20 mg Q12HR PO 04/30/25 10:00 05/01/25 10:00 20 MG Atorvastatin Calcium 40 mg HS PO 04/30/25 22:00 04/30/25 21:05 40 MG Ergocalciferol 50,000 unit Q7D PO 04/30/25 16:30 04/30/25 17:08 50,000 UNIT Ondansetron HCl 4 mg Q4HPRN PRN IV 05/01/25 11:00 05/01/25 11:13 4 MG Examination General Appearance: Cooperative. Well developed. Well nourished. NAD Head Exam: Normal inspection Neck Exam: Normal inspection. Non-tender. Normal alignment Pulmonary/Respiratory: Chest non-tender. Clear bilateral breath sounds, no crackles, no wheezing. Cardiovascular/Chest: Regular rate and rhythm. No murmurs. No JVD. Peripheral Pulses: 2+ Radial (R). 2+ Radial (L). 2+ Pedal (R). 2+ Pedal (L) Abdominal Exam: Normal bowel sounds. Soft. normal abdomen, no visible veins, Nontender. No hepatospenomegaly. No masses Ankle Exam: Negative ankle edema Lower extremities: Negative lower extremity edema Neuro/Mental Status: A&O x4. Coherent. Thoughts/Psych: Normal thought pattern. Appropriate mood and affect. Good judgement and insight Skin Exam: Normal inspection. Normal color. Warm. Dry laboratory and microbiology Laboratory Tests 05/01/25 08:28 Test 05/01/25 08:28 Range/Units Serum Glucose 83 74-106 mg/dL Labs and/or images reviewed: Labs reviewed by me, Image(s) reviewed by me Problem List/Assessment/Plan Problem List/Assessment/Plan # Chest pain, rule out acute coronary syndrome # History of [place] s/p PTCA x 4 JANEL # Hypertensive heart disease # Hyperlipidemia # Costochondritis, rule out # Dyslipidemia -EKG: no acute ST changes -Troponin: 11> 12> 11 -CXR: No acute cardiopulmonary disease -Aspirin 81 mg p.o. daily and Plavix 75 mg hs p.o., Lipitor 40 hs p.o. -Metoprolol 50 mg daily p.o. -Echocardiogram- LVEF 55%, [id number] LVH -cardiology on board, recommend Cardiolite stress test to be done on 05/04/25 # Vitamin D deficiency - vit D level is 25.3 - start vit D 50,000 units weekly Diet: Cardiac GI prophylaxis: Famotidine 20 mg p.o. b.i.d. DVT prophylax: Lovenox 40 mg daily SC Goals of care: Full code, discussed for >16 minutes Plan discussed with patient Plan discussed with Dr. Pichardo Plan discussed with: Patient My Orders My Orders Orders - SIBIA,HARNOOR SWARTZ RESIDENT Procedure Category Date Status Time Ergocalciferol PHA 04/30/25 In Process (Vitamin D 50,000 16:30 Ondansetron Hcl PHA 05/01/25 In Process (Zofran) 11:00 Cardiac DIET 05/01/25 Transmitted Diet-2gna,Lofat,Lochol Lunch Date of Service: May 01, 2025 Billing Provider: ASIA PICHARDO MD Common Visit Codes: [id number] INP/OBS CARE(HIGH) CECILIA BUSTILLOS RESIDENT May 01, 2025 16:02 ASIA PICHARDO MD May 01, 2025 21:08
[2025-05-02] VITALS (8 sets, daily range): BP systolic 110–153; BP diastolic 74–88; PULSE 53–107; RESP 15–19; TEMP 97.1–98.7; O2SAT 96–99
[2025-05-02] MEDS: NITROGLYCERIN 0.4 MG SL TAB SL PRN (08:25)
--- NOTE | 2025-05-02 13:34 | DVHPNRES ---
Progress Note Date Seen: May 02, 2025 Resident Creating Document: HARRIETT NICHOLE RESIDENT Medical Necessity Reason Pt with a Central, PICC or Fol: No Subjective Review of Systems Conrad Mejia is a 54-year-old male with past medical history of hypertension, CAD s/p PCI with 4 stents (with 2 stents being placed last month), dyslipidemia was brought in from the [facility] into the ED with the chief complaint of chest pain. The patient mentions he started having chest pain 1 week back, which has been constant, left-sided, nonradiating, pressure-like, rated 8/10 in intensity, which increased on exertion. The patient also mentions having shortness of breath since 1 week. He denies any cough or fever. The pain was relieved with nitroglycerin. The patient has a history of placement of 2 stents in May 2024 in [facility] and 2 stent was placed at [facility] last month. The patient mentions he did not get his aspirin and Plavix since [facility]. Echo revealed LVEF of 55% with [id number] LVH. Cardiology evaluated the patient and recommended Cardiolite stress test at the earliest possible availability. Past medical history: hypertension, CAD s/p PCI with 4 stents (with 2 stents being placed last month), dyslipidemia Past surgical history: Angiogram x2 (05/2024 and 03/2025) Personal history: Cigarette smoking 30 pack years, history of heavy alcohol use in the past , denies any illicit drugs Family history: Nothing contributory Allergy: No known allergy Patient seen and examined at bedside. Patient is alert and oriented to time, place person and responding to all questions. Eyes: No Pain, No Vision change, No Conjunctivae inflammation, No Eyelid inflammation, No Redness ENT: No Ear pain, No Ear discharge, No Nose pain, No Nose discharge, No Nose congestion, No Mouth pain, No Mouth swelling, No Throat pain, No Throat swelling Cardiovascular: Chest Pain, No Palpitations, No Orthopnea, No Paroxysmal No Dyspnea, No Edema, No Lt Headedness Respiratory: No Cough, No Dry, Shortness of breath, SOB with exertion, No Wheezing, No Hemoptysis, No Pleuritic Pain, No Sputum Gastrointestinal: No Nausea, No Vomiting, No Abdominal Pain, No Diarrhea, No Constipation, No Melena, No Hematochezia Genitourinary: No Dysuria, No Frequency, No Incontinence, No Hematuria, No Retention 05/01/25- the patient was seen at bedside today. He had no new complaints. We will continue with the same management. Telemetry was reviewed. Was placed NPO in the morning for possible Cardiolite stress test today, but we were informed the Cardiolite stress test will be done on Sunday morning. We will keep the patient under observation with medical management till the Cardiolite stress test can be done. Questions and concerns were answered. 05/02/2025: Patient seen at bedside. Patient states having 4/10 pressure-like chest pain. Telemetry was reviewed, patient is to have cardiology stress test on Sunday. Patient denies any shortness of breath, palpitations, nausea, vomiting, headaches. Patient also complained of worms in stool, burning sensation in urine. Stool culture ordered. Objective vital signs Vital Sign Date Time Temp Pulse Resp B/P (MAP) Pulse Ox O2 Delivery O2 Flow Rate FiO2 05/02/25 11:07 65 132/88 05/02/25 08:55 97.8 18 97 97.8 05/02/25 08:00 Room Air* 0 21 Total Intake and Output 05/01/25 05/01/25 05/02/25 15:00 23:00 07:00 Intake Total 600 ml 860 ml Balance 600 ml 860 ml medications Current Medications Medications Dose Ordered Sig/Chacorta Route Start Time Stop Time Status Last Admin Dose Admin Enoxaparin Sodium 40 mg DAILY SC 04/30/25 10:00 05/02/25 11:07 40 MG Acetaminophen 650 mg Q6HP PRN PO 04/29/25 22:30 Nitroglycerin 0.4 mg Q5MINP PRN SL 04/29/25 22:30 05/02/25 08:25 0.4 MG Morphine Sulfate 2 mg Q30M PRN IV 04/29/25 22:30 05/02/25 08:23 2 MG Metoprolol Succinate 50 mg DAILY PO 04/30/25 10:00 05/02/25 11:07 50 MG Aspirin 81 mg DAILY PO 04/30/25 10:00 05/02/25 10:55 81 MG Clopidogrel Bisulfate 75 mg DAILY PO 04/30/25 10:00 05/02/25 10:57 75 MG Famotidine 20 mg Q12HR PO 04/30/25 10:00 05/02/25 10:56 20 MG Atorvastatin Calcium 40 mg HS PO 04/30/25 22:00 05/01/25 21:02 40 MG Ergocalciferol 50,000 unit Q7D PO 04/30/25 16:30 04/30/25 17:08 50,000 UNIT Ondansetron HCl 4 mg Q4HPRN PRN IV 05/01/25 11:00 05/01/25 11:13 4 MG Examination General: Patient alert and oriented in person, place and time. Patient following commands. HEENT: Normocephalic, atraumatic, moist mucous membranes Respiratory/pulmonary: Clear lungs bilaterally, vesicular murmurs present in almost all lung vaz, no associated crackles or wheezes. Cardiovascular: Normal heart sounds S1 and S2 with no associated murmurs Abdomen: Abdomen nondistended, there is no pain to palpation in any of the abdominal quadrants, no palpable masses. Extremities: There is no peripheral edema present at the lower extremities. Peripheral Pulses: 3+ Radial (R). 3+ Radial (L). 3+ Dorsalis pedis (R). 3+ Dorsalis pedis(L) Skin: No rashes or pruritus, there is no sacral edema present at this time. Neurological: Intact cranial nerves with no focal neurologic deficits laboratory and microbiology Laboratory Tests 05/01/25 08:28 Test 05/01/25 08:28 Range/Units Serum Glucose 83 74-106 mg/dL Problem List/Assessment/Plan Problem List/Assessment/Plan # Chest pain, rule out acute coronary syndrome # History of [place] s/p PTCA x 4 JANEL # Hypertensive heart disease # Hyperlipidemia # Costochondritis, rule out # Dyslipidemia -EKG: no acute ST changes -Troponin: 11> 12> 11 -CXR: No acute cardiopulmonary disease -Aspirin 81 mg p.o. daily and Plavix 75 mg hs p.o., Lipitor 40 hs p.o. -Metoprolol 50 mg daily p.o. -Echocardiogram- LVEF 55%, [id number] LVH -cardiology on board, recommend Cardiolite stress test to be done on 05/04/25 # Vitamin D deficiency - vit D level is 25.3 - start vit D 50,000 units weekly # obesity BMI 30.2 - patient counseled on diet, exercise, lifestyle modification for greater than 18 minutes. Diet: Cardiac GI prophylaxis: Famotidine 20 mg p.o. b.i.d. DVT prophylax: Lovenox 40 mg daily SC Goals of care: Full code, discussed for >16 minutes Plan discussed with patient Plan discussed with Dr. Pichardo Plan discussed with: Patient Date of Service: May 02, 2025 Billing Provider: ASIA PICHARDO MD Common Visit Codes: [id number] INP/OBS CARE(HIGH) HARRIETT NICHOLE RESIDENT May 02, 2025 13:33 ASIA PICHARDO MD May 02, 2025 22:45
[2025-05-02] MEDS: SENNA 8.6 MG TAB PO SCH (21:04)
[2025-05-02 21:33] LABS: Urine Protein, UAD Negative (Negative)
[2025-05-02 21:40] LABS: Amphetamine Screen, Urine Neg (NEGATIVE); Opiate Scree,Urine Neg (NEGATIVE)
[2025-05-02 21:41] LABS: Barbiturate Scree,Urine Neg (NEGATIVE); Benzodiazephine Screen, Urine Neg (NEGATIVE); Cannabinoid Screen, Urine Neg (NEGATIVE); Cocaine Screen, Urine Neg (NEGATIVE); Phencyclidine Screen, Urine Neg (NEGATIVE)
[2025-05-03] VITALS (8 sets, daily range): BP systolic 112–148; BP diastolic 76–99; PULSE 75–119; RESP 16–19; TEMP 97.9–103.8; O2SAT 0–100
[2025-05-03] MEDS: IBUPROFEN 400 MG TAB PO ONE (02:52)
[2025-05-03] MEDS: ALPRAZolam 0.25 MG TAB PO ONE (04:51)
[2025-05-03] MEDS: clonazePAM 0.5 MG TAB PO ONE (13:00)
[2025-05-03] MEDS: PANTOPRAZOLE 40 MG/10 ML VIAL INJ IV ONE (14:21)
--- NOTE | 2025-05-03 15:52 | DVHPNRES ---
Progress Note Date Seen: May 03, 2025 Resident Creating Document: CECILIA BUSTILLOS RESIDENT Medical Necessity Reason Pt with a Central, PICC or Fol: No Subjective Review of Systems Conrad Mejia is a 54-year-old male with past medical history of hypertension, CAD s/p PCI with 4 stents (with 2 stents being placed last month), dyslipidemia was brought in from the [facility] into the ED with the chief complaint of chest pain. The patient mentions he started having chest pain 1 week back, which has been constant, left-sided, nonradiating, pressure-like, rated 8/10 in intensity, which increased on exertion. The patient also mentions having shortness of breath since 1 week. He denies any cough or fever. The pain was relieved with nitroglycerin. The patient has a history of placement of 2 stents in May 2024 in [facility] and 2 stent was placed at [facility] last month. The patient mentions he did not get his aspirin and Plavix since [facility]. Echo revealed LVEF of 55% with [id number] LVH. Cardiology evaluated the patient and recommended Cardiolite stress test at the earliest possible availability. Past medical history: hypertension, CAD s/p PCI with 4 stents (with 2 stents being placed last month), dyslipidemia Past surgical history: Angiogram x2 (05/2024 and 03/2025) Personal history: Cigarette smoking 30 pack years, history of heavy alcohol use in the past , denies any illicit drugs Family history: Nothing contributory Allergy: No known allergy Patient seen and examined at bedside. Patient is alert and oriented to time, place person and responding to all questions. Eyes: No Pain, No Vision change, No Conjunctivae inflammation, No Eyelid inflammation, No Redness ENT: No Ear pain, No Ear discharge, No Nose pain, No Nose discharge, No Nose congestion, No Mouth pain, No Mouth swelling, No Throat pain, No Throat swelling Cardiovascular: Chest Pain, No Palpitations, No Orthopnea, No Paroxysmal No Dyspnea, No Edema, No Lt Headedness Respiratory: No Cough, No Dry, Shortness of breath, SOB with exertion, No Wheezing, No Hemoptysis, No Pleuritic Pain, No Sputum Gastrointestinal: No Nausea, No Vomiting, No Abdominal Pain, No Diarrhea, No Constipation, No Melena, No Hematochezia Genitourinary: No Dysuria, No Frequency, No Incontinence, No Hematuria, No Retention 05/01/25- the patient was seen at bedside today. He had no new complaints. We will continue with the same management. Telemetry was reviewed. Was placed NPO in the morning for possible Cardiolite stress test today, but we were informed the Cardiolite stress test will be done on Sunday morning. We will keep the patient under observation with medical management till the Cardiolite stress test can be done. Questions and concerns were answered. 05/02/2025: Patient seen at bedside. Patient states having 4/10 pressure-like chest pain. Telemetry was reviewed, patient is to have cardiology stress test on Sunday. Patient denies any shortness of breath, palpitations, nausea, vomiting, headaches. Patient also complained of worms in stool, burning sensation in urine. Stool culture ordered. 05/03/25- the patient was seen at bedside today. The patient complained of chest pain. EKG was done, which showed sinus tachycardia. Troponin level was 13. Stool test for WBCs was negative. The patient was told about the Cardiolite stress test scheduled for tomorrow. All questions were answered and concerns were addressed. Objective vital signs Vital Sign Date Time Temp Pulse Resp B/P (MAP) Pulse Ox O2 Delivery O2 Flow Rate FiO2 05/03/25 13:00 103.8 119 16 118/89 (99) 0 103.8 05/03/25 08:00 Room Air* 0 21 Total Intake and Output 05/02/25 05/02/25 05/03/25 15:00 23:00 07:00 Intake Total 1400 ml 900 ml Balance 1400 ml 900 ml medications Current Medications Medications Dose Ordered Sig/Chacorta Route Start Time Stop Time Status Last Admin Dose Admin Enoxaparin Sodium 40 mg DAILY SC 04/30/25 10:00 05/03/25 10:38 40 MG Acetaminophen 650 mg Q6HP PRN PO 04/29/25 22:30 Nitroglycerin 0.4 mg Q5MINP PRN SL 04/29/25 22:30 05/02/25 08:25 0.4 MG Morphine Sulfate 2 mg Q30M PRN IV 04/29/25 22:30 05/02/25 16:47 2 MG Metoprolol Succinate 50 mg DAILY PO 04/30/25 10:00 05/03/25 10:39 50 MG Aspirin 81 mg DAILY PO 04/30/25 10:00 05/03/25 10:38 81 MG Clopidogrel Bisulfate 75 mg DAILY PO 04/30/25 10:00 05/03/25 10:38 75 MG Atorvastatin Calcium 40 mg HS PO 04/30/25 22:00 05/02/25 21:04 40 MG Ergocalciferol 50,000 unit Q7D PO 04/30/25 16:30 04/30/25 17:08 50,000 UNIT Ondansetron HCl 4 mg Q4HPRN PRN IV 05/01/25 11:00 05/03/25 13:04 4 MG Sennosides 8.6 mg HS PO 05/02/25 22:00 Clonazepam 0.25 mg Q12HP PRN PO 05/03/25 13:00 Pantoprazole Sodium 40 mg DAILY IV 05/04/25 10:00 Examination General: Patient alert and oriented in person, place and time. Patient following commands. HEENT: Normocephalic, atraumatic, moist mucous membranes Respiratory/pulmonary: Clear lungs bilaterally, vesicular murmurs present in almost all lung vaz, no associated crackles or wheezes. Cardiovascular: Normal heart sounds S1 and S2 with no associated murmurs Abdomen: Abdomen nondistended, there is no pain to palpation in any of the abdominal quadrants, no palpable masses. Extremities: There is no peripheral edema present at the lower extremities. Peripheral Pulses: 3+ Radial (R). 3+ Radial (L). 3+ Dorsalis pedis (R). 3+ Dorsalis pedis(L) Skin: No rashes or pruritus, there is no sacral edema present at this time. Neurological: Intact cranial nerves with no focal neurologic deficits laboratory and microbiology Laboratory Tests 05/01/25 08:28 Test 05/01/25 08:28 Range/Units Serum Glucose 83 74-106 mg/dL Microbiology Date/Time Source Procedure Growth Status 05/02/25 20:20 Stool Stool Culture - Preliminary Resulted 05/02/25 20:20 Stool Shiga Toxin I & II Pending Resulted Labs and/or images reviewed: Labs reviewed by me, Image(s) reviewed by me Problem List/Assessment/Plan Problem List/Assessment/Plan # Chest pain, rule out acute coronary syndrome # History of [place] s/p PTCA x 4 JANEL # Hypertensive heart disease # Hyperlipidemia # Costochondritis, rule out # Dyslipidemia -EKG: no acute ST changes -Troponin: 11> 12> 11 -CXR: No acute cardiopulmonary disease -Aspirin 81 mg p.o. daily and Plavix 75 mg hs p.o., Lipitor 40 hs p.o. -Metoprolol 50 mg daily p.o. -Echocardiogram- LVEF 55%, [id number] LVH -cardiology on board, recommend Cardiolite stress test to be done on 05/04/25 -repeat EKG showed sinus tachycardia, troponin 13 on 05/03/2025 # Vitamin D deficiency - vit D level is 25.3 - start vit D 50,000 units weekly Diet: Cardiac GI prophylaxis: Famotidine 20 mg p.o. b.i.d. DVT prophylax: Lovenox 40 mg daily SC Goals of care: Full code, discussed for >16 minutes Plan discussed with patient Plan discussed with Dr. Pichardo Plan discussed with: Patient Date of Service: May 03, 2025 Billing Provider: ASIA PICHARDO MD Common Visit Codes: [id number] INP/OBS CARE(HIGH) CECILIA BUSTILLOS RESIDENT May 03, 2025 15:52
[2025-05-03] MEDS: ACETAMINOPHEN 325 MG TAB PO PRN (17:40)
[2025-05-03] MEDS: clonazePAM 0.5 MG TAB PO PRN (22:44)
[2025-05-04] VITALS (8 sets, daily range): BP systolic 105–133; BP diastolic 73–91; PULSE 75–102; RESP 17–20; TEMP 98.2–102.9; O2SAT 95–100
[2025-05-04] MEDS ORDERED: ACETAMINOPHEN 325 MG TAB PO ONE (00:45)
[2025-05-04] MEDS: ACETAMINOPHEN 500 MG TAB or CAP PO ONE (01:06)
[2025-05-04 05:28] LABS: Hematocrit 47.8 % (41.0-53.0); Hemoglobin 16.1 g/dL (13.5-17.5); Mean Corpuscular Hemoglobin 26.7 pg (28.0-32.0); Mean Corpuscular Volume 79.1 fL (80.0-100.0); Nucleated Red Blood Cells % 0.2 %
[2025-05-04 05:40] LABS: Anion Gap 9 (5-15); Carbon Dioxide 30 mmol/L (20-31); Potassium 4.2 mmol/L (3.5-5.1)
[2025-05-04 05:41] LABS: Calcium 9.4 mg/dL (8.7-10.4)
[2025-05-04 05:45] LABS: Chloride 96 mmol/L (98-107); Sodium 135 mmol/L (136-145)
[2025-05-04 05:46] LABS: BUN/Creatinine Ratio 14.0 (10.0-20.0); Blood Urea Nitrogen 16 mg/dL (9-23); Glucose 90 mg/dL (74-106)
[2025-05-04] MEDS: SODIUM CHLORIDE 0.9% 500 ML IV ONE (07:30)
[2025-05-04] MEDS: REGADENOSON 0.4 MG/5 ML SYRG IV ONE ×2 (08:30)
--- NOTE | 2025-05-04 09:46 | ECG ---
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
[2025-05-04] MEDS: PANTOPRAZOLE 40 MG/10 ML VIAL INJ IV SCH (10:44)
[2025-05-04] MEDS: METOPROLOL SUCCINATE XL 50 MG TAB PO SCH (10:46)
--- NOTE | 2025-05-04 11:29 | DVH ---
Technique: Real-time ultrasound imaging of the abdomen was performed with grayscale and color Doppler. Indication: ruq pain Comparison: None Findings: Liver measures 17.6 cm. It is increased in echogenicity and echotexture without focal mass. Portal vein is normal in caliber and demonstrates normal hepatopetal flow. Gallbladder demonstrates no evidence for cholelithiasis. There is no pericholecystic fluid. The wall thickness is normal. The common bile duct is nonvisualized. No intrahepatic biliary ductal dilatation. The right kidney measures 11.3 cm. There is no hydronephrosis or sonographic evidence of nephrolithiasis. The visualized portion of the pancreas is unremarkable. The visualized portion of the IVC is unremarkable. Impression: Echogenic liver which can be seen with hepatic steatosis, cirrhosis. No Evidence for Cholelithiasis . CBD nonvisualized.
--- NOTE | 2025-05-04 11:53 | DVHSR ---
APPROVED REPORT Exam: Nuclear Stress Test BMI: 0 Stress Test Details HR Max Heart Rate (APMHR): 166.970571 bpm Target HR (85% APMHR): 141.620783 bpm BP ECG Stress ECG Conclusion large infarct of the anterolaterla and mild lateral wall lvef 37% NM EXAM: Myocardial Perfusion REST/STRESS Imaging Protocol: Rest Tc-99m/Stress Tc-99m 2 days Resting Data Rest SPECT myocardial perfusion imaging was performed in supine position 60 minutes following the intravenous injection of 16.2 mCi of Tc-99m Sestamibi. Time of rest injection: 09:00 Date: 05/02/2025 Time of rest imagin:00 Date: 05/02/2025 Administration Route: IV Administration Site: Right Arm Pharmacologic Stress Pharmacologic stress test was performed by injecting Regadenoson 0.4 mg IV push followed by the intravenous injection of 22.0 mCi of Tc-99m Sestamibi. Time of stress injection: 08:30 Date: 05/04/2025 Time of stress imagin:30 Date: 05/04/2025 Administration Route: IV Administration Site: Right Arm Gated Stress SPECT was performed 60 minutes after stress injection. The images were gated to evaluate regional wall motion and calculate left ventricular ejection fraction. Stress only was performed in the Supine position. Nuclear Conclusion Nuclear Findings: negative for ischemia large infarct of the anterolaterla and mild lateral wall lvef 37%
[2025-05-04] MEDS ORDERED: VANCOMYCIN PER PHARMACY 0 MG IV SCH (14:30)
[2025-05-04] MEDS: VANCOMYCIN 1GM/250ML KIT 250 ML IV SCH (16:08)
--- NOTE | 2025-05-04 16:28 | DVHPNRES ---
Progress Note Date Seen: May 04, 2025 Resident Creating Document: CECILIA BUSTILLOS RESIDENT Medical Necessity Reason Pt with a Central, PICC or Fol: No Subjective Review of Systems Conrad Mejia is a 54-year-old male with past medical history of hypertension, CAD s/p PCI with 4 stents (with 2 stents being placed last month), dyslipidemia was brought in from the [facility] into the ED with the chief complaint of chest pain. The patient mentions he started having chest pain 1 week back, which has been constant, left-sided, nonradiating, pressure-like, rated 8/10 in intensity, which increased on exertion. The patient also mentions having shortness of breath since 1 week. He denies any cough or fever. The pain was relieved with nitroglycerin. The patient has a history of placement of 2 stents in May 2024 in [facility] and 2 stent was placed at [facility] last month. The patient mentions he did not get his aspirin and Plavix since 4 days at the long[facility]term center. Echo revealed LVEF of 55% with [id number] LVH. Cardiology evaluated the patient and recommended Cardiolite stress test at the earliest possible availability. Past medical history: hypertension, CAD s/p PCI with 4 stents (with 2 stents being placed last month), dyslipidemia Past surgical history: Angiogram x2 (05/2024 and 03/2025) Personal history: Cigarette smoking 30 pack years, history of heavy alcohol use in the past , denies any illicit drugs Family history: Nothing contributory Allergy: No known allergy Patient seen and examined at bedside. Patient is alert and oriented to time, place person and responding to all questions. Eyes: No Pain, No Vision change, No Conjunctivae inflammation, No Eyelid inflammation, No Redness ENT: No Ear pain, No Ear discharge, No Nose pain, No Nose discharge, No Nose congestion, No Mouth pain, No Mouth swelling, No Throat pain, No Throat swelling Cardiovascular: Chest Pain, No Palpitations, No Orthopnea, No Paroxysmal No Dyspnea, No Edema, No Lt Headedness Respiratory: No Cough, No Dry, Shortness of breath, SOB with exertion, No Wheezing, No Hemoptysis, No Pleuritic Pain, No Sputum Gastrointestinal: No Nausea, No Vomiting, No Abdominal Pain, No Diarrhea, No Constipation, No Melena, No Hematochezia Genitourinary: No Dysuria, No Frequency, No Incontinence, No Hematuria, No Retention 05/01/25- the patient was seen at bedside today. He had no new complaints. We will continue with the same management. Telemetry was reviewed. Was placed NPO in the morning for possible Cardiolite stress test today, but we were informed the Cardiolite stress test will be done on Sunday morning. We will keep the patient under observation with medical management till the Cardiolite stress test can be done. Questions and concerns were answered. 05/02/2025: Patient seen at bedside. Patient states having 4/10 pressure-like chest pain. Telemetry was reviewed, patient is to have cardiology stress test on Sunday. Patient denies any shortness of breath, palpitations, nausea, vomiting, headaches. Patient also complained of worms in stool, burning sensation in urine. Stool culture ordered. 05/03/25- the patient was seen at bedside today. The patient complained of chest pain. EKG was done, which showed sinus tachycardia. Troponin level was 13. Stool test for WBCs was negative. The patient was told about the Cardiolite stress test scheduled for tomorrow. All questions were answered and concerns were addressed. 05/04/25- patient was evaluated at bedside today. Patient underwent Cardiolite stress test which was negative for ischemia, large infarct of the anterolateral and mild lateral wall and lvef 37%. Patient was started on Jardiance and ranolazine by Cardiology. The patient continued to have pain and redness in the left antecubital fossa area along with fevers since yesterday. Blood culture was positive for Gram-positive cocci in clusters, so he was started on vancomycin per pharmacy. On examination, patient also had tenderness in the right upper quadrant for which gallbladder ultrasound was done which was unremarkable. Objective vital signs Vital Sign Date Time Temp Pulse Resp B/P (MAP) Pulse Ox O2 Delivery O2 Flow Rate FiO2 05/04/25 13:00 98.2 97 20 127/83 (98) 99 98.2 05/04/25 08:00 Room Air* 0 21 Total Intake and Output 05/03/25 05/03/25 05/04/25 15:00 23:00 07:00 Intake Total 500 ml 0 ml Balance 500 ml 0 ml medications Current Medications Medications Dose Ordered Sig/Chacorta Route Start Time Stop Time Status Last Admin Dose Admin Enoxaparin Sodium 40 mg DAILY SC 04/30/25 10:00 05/04/25 10:45 40 MG Acetaminophen 650 mg Q6HP PRN PO 04/29/25 22:30 05/04/25 13:48 650 MG Nitroglycerin 0.4 mg Q5MINP PRN SL 04/29/25 22:30 05/02/25 08:25 0.4 MG Morphine Sulfate 2 mg Q30M PRN IV 04/29/25 22:30 05/02/25 16:47 2 MG Aspirin 81 mg DAILY PO 04/30/25 10:00 05/04/25 10:44 81 MG Clopidogrel Bisulfate 75 mg DAILY PO 04/30/25 10:00 05/04/25 10:44 75 MG Atorvastatin Calcium 40 mg HS PO 04/30/25 22:00 05/03/25 21:44 40 MG Ergocalciferol 50,000 unit Q7D PO 04/30/25 16:30 04/30/25 17:08 50,000 UNIT Ondansetron HCl 4 mg Q4HPRN PRN IV 05/01/25 11:00 05/03/25 13:04 4 MG Sennosides 8.6 mg HS PO 05/02/25 22:00 Clonazepam 0.25 mg Q12HP PRN PO 05/03/25 13:00 05/03/25 22:44 0.25 MG Pantoprazole Sodium 40 mg DAILY IV 05/04/25 10:00 05/04/25 10:44 40 MG Metoprolol Succinate 25 mg DAILY PO 05/04/25 10:00 05/04/25 10:46 25 MG Ceftriaxone Sodium 50 ml @ 100 mls/hr DAILY@09 IV 05/05/25 09:00 Ranolazine 500 mg BID PO 05/04/25 22:00 Empaglifozin 10 mg DAILY PO 05/05/25 10:00 Vancomycin HCl 0 ml @ 0 mls/hr PER PHARMACY IV 05/04/25 14:30 Vancomycin HCl 250 ml @ 250 mls/hr Q1H IV 05/04/25 15:15 05/04/25 17:14 05/04/25 16:08 250 MLS/HR Examination General: Patient alert and oriented in person, place and time. Patient following commands. HEENT: Normocephalic, atraumatic, moist mucous membranes Respiratory/pulmonary: Clear lungs bilaterally, vesicular murmurs present in almost all lung vaz, no associated crackles or wheezes. Cardiovascular: Normal heart sounds S1 and S2 with no associated murmurs Abdomen: Abdomen nondistended, tenderness to palpation of right upper quadrant, no palpable masses. Extremities: There is no peripheral edema present at the lower extremities. Upper extremity: Redness, tenderness and warmth on left antecubital fossa area Peripheral Pulses: 3+ Radial (R). 3+ Radial (L). 3+ Dorsalis pedis (R). 3+ Dorsalis pedis(L) Skin: No rashes or pruritus, there is no sacral edema present at this time. Neurological: Intact cranial nerves with no focal neurologic deficits laboratory and microbiology Laboratory Tests 05/04/25 04:49 Test 05/04/25 04:49 Range/Units Serum Glucose 90 74-106 mg/dL Microbiology Date/Time Source Procedure Growth Status 05/04/25 01:13 Blood Blood Culture - Preliminary Resulted 05/03/25 05:35 Nose MRSA Screen - Final Complete 05/02/25 20:20 Stool Stool Culture - Final Complete 05/02/25 20:20 Stool Shiga Toxin I & II - Final Complete Labs and/or images reviewed: Labs reviewed by me, Image(s) reviewed by me Problem List/Assessment/Plan Problem List/Assessment/Plan # Chest pain, rule out acute coronary syndrome # History of [place] s/p PTCA x 4 JANEL # Hypertensive heart disease # Hyperlipidemia # Costochondritis, rule out # Dyslipidemia -EKG: no acute ST changes -Troponin: 11> 12> 11 -CXR: No acute cardiopulmonary disease -Aspirin 81 mg p.o. daily and Plavix 75 mg hs p.o., Lipitor 40 hs p.o. -Metoprolol 50 mg daily p.o. -Echocardiogram- LVEF 55%, [id number] LVH -repeat EKG showed sinus tachycardia, troponin 13 on 05/03/2025 -Cardiolite stress test - negative for ischemia,large infarct of the anterolaterla and mild lateral wall and lvef 37% -started on Jardiance and ranolazine # Bacteremia, Gram-positive # Cellulitis, left arm -blood culture revealed Gram-positive cocci in clusters -started on vancomycin per pharmacy # intractable abdominal pain, right upper quadrant, ruled out cholecystitis or cholelithiasis -her bladder ultrasound was unremarkable # Vitamin D deficiency - vit D level is 25.3 - start vit D 50,000 units weekly Diet: Cardiac GI prophylaxis: Famotidine 20 mg p.o. b.i.d. DVT prophylax: Lovenox 40 mg daily SC Goals of care: Full code, discussed for >16 minutes Plan discussed with patient Plan discussed with Dr. Pichardo Plan discussed with: Patient My Orders My Orders Orders - CECILIA BUSTILLOS RESIDENT Procedure Category Date Status Time Vancomycin Per PHA 05/04/25 In Process Pharmacy 14:30 Vancomycin 1gm/250ml PHA 05/04/25 In Process Kit 15:15 Dietary Evaluation Review Comments: Monitor PO intake, lab values, weight trend, and I/O Expected Outcomes/Goals: Intake to meet >75% estimated needs Lab values to improve FU 3-5 days Date of Service: May 04, 2025 Billing Provider: ASIA PICHARDO MD Common Visit Codes: [id number] INP/OBS CARE(HIGH) CECILIA BUSTILLOS RESIDENT May 04, 2025 16:28 ASIA PICHARDO MD May 04, 2025 23:20
[2025-05-04] MEDS ORDERED: VANCOMYCIN 1GM/250ML KIT 250 ML IV SCH (17:45)
[2025-05-04] MEDS: RANOLAZINE ER 500 MG TAB PO SCH (20:36)
[2025-05-05] VITALS (8 sets, daily range): BP systolic 114–143; BP diastolic 74–98; PULSE 59–96; RESP 16–20; TEMP 97.9–100.8; O2SAT 94–100
[2025-05-05] MEDS: VANCOMYCIN 1GM/250ML KIT 250 ML IV SCH (04:48)
[2025-05-05 06:18] LABS: Chloride 99 mmol/L (98-107); Potassium 4.0 mmol/L (3.5-5.1)
[2025-05-05 06:19] LABS: Anion Gap 10 (5-15); Carbon Dioxide 24 mmol/L (20-31)
[2025-05-05 06:24] LABS: Calcium 8.4 mg/dL (8.7-10.4); Sodium 133 mmol/L (136-145)
[2025-05-05 06:25] LABS: BUN/Creatinine Ratio 19.8 (10.0-20.0); Blood Urea Nitrogen 16 mg/dL (9-23)
[2025-05-05 06:28] LABS: Glucose 121 mg/dL (74-106)
[2025-05-05 06:32] LABS: Hematocrit 44.5 % (41.0-53.0); Hemoglobin 14.8 g/dL (13.5-17.5); Mean Corpuscular Hemoglobin 26.7 pg (28.0-32.0); Mean Corpuscular Volume 80.3 fL (80.0-100.0); Nucleated Red Blood Cells % 0.1 %
[2025-05-05] MEDS: SODIUM CHLORIDE 0.9% 500 ML IV ONE (08:15)
[2025-05-05] MEDS: EMPAGLIFLOZIN 10 MG TAB PO SCH (09:37)
[2025-05-05] MEDS: PANTOPRAZOLE 40 MG TAB PO ONE (09:40)
[2025-05-05] MEDS: POLYETHYLENE GLYCOL 17 GM PWDR PO ONE (14:58)
[2025-05-05] MEDS ORDERED: IOHEXOL 300 MG/ML 100ML BOTTLE IJ ONE (16:44)
--- NOTE | 2025-05-05 17:43 | DVH ---
EXAM: CT CT CHEST/AB/PL W CON- IV ONLY History: right chest and flank pain and tenderness Comparison Study: XY CHEST PORTABLE on DOS: 04/29/25, CT ANGIO CHEST - AORTA on DOS: 03/09/25, XR CHEST 1 VIEW on DOS: 03/09/25, XR CHEST 1 VIEW on DOS: 02/07/25, XR CHEST 1 VIEW on DOS: 05/26/24 TECHNIQUE: A digital cook italian style food image was obtained. During the uneventful, intravenous administration of contrast material, multislice data acquisition was obtained through the chest, abdomen, and pelvis. The data set was subsequently reconstructed into axial, coronal, and sagittal images. Radiation Dose : CTDI vol 13.1 mGy, DLP 972.2 mGy*cm. Findings: CT chest: Evaluation is degraded by respiratory motion. Lungs: Dense opacity within the rideo-ezhjycp-aupt-left lower lobe. Suspected cavitary lesion/ abscess within the dependent aspect of the right lower lobe measuring 19 mm. Pleura: Trace right pleural effusion. Heart/Great vessels: There is mild cardiomegaly. There is no pericardial effusion. The aorta is unremarkable. Mediastinum: Unremarkable. Soft tissues/Bones: Unremarkable CT abdomen/pelvis: Evaluation is degraded by motion artifact. Liver: Diffuse hypoattenuation of the liver suggestive of hepatic steatosis. Spleen: Unremarkable. Pancreas: Unremarkable. Gallbladder: Contracted in appearance. Adrenals: Unremarkable. Kidneys: Too small to characterize right renal lesion. No hydronephrosis. Pelvic Viscera: Unremarkable. Vasculature: Atherosclerotic aortoiliac calcification. Retroperitoneum: Unremarkable. Bowel: Fecal distention of the rectum with moderate stool burden. No bowel obstruction. Musculoskeletal: Unremarkable. Soft tissues: Unremarkable. Impression: 1. Dense opacity within the cidme-tlphsco-nwmx-left lower lobe with possible cavitary lesion/ abscess within the dependent aspect of the right lower lobe. Findings are most suggestive of infectiou/inflammatory process. Posttreatment follow-up is suggested to ensure appropriate resolution. 2. No acute abnormality identified within the abdomen or pelvis. 3. Incidental findings as detailed.
[2025-05-05] MEDS ORDERED: MORPHINE SULFATE 4 MG/ML SYR/VIAL IV PRN (18:00)
--- NOTE | 2025-05-05 18:13 | DVHPNRES ---
Progress Note Date Seen: May 05, 2025 Resident Creating Document: CECILIA BUSTILLOS RESIDENT Medical Necessity Reason Pt with a Central, PICC or Fol: No Subjective Review of Systems Conrad Mejia is a 54-year-old male with past medical history of hypertension, CAD s/p PCI with 4 stents (with 2 stents being placed last month), dyslipidemia was brought in from the [facility] into the ED with the chief complaint of chest pain. The patient mentions he started having chest pain 1 week back, which has been constant, left-sided, nonradiating, pressure-like, rated 8/10 in intensity, which increased on exertion. The patient also mentions having shortness of breath since 1 week. He denies any cough or fever. The pain was relieved with nitroglycerin. The patient has a history of placement of 2 stents in May 2024 in [facility] and [address] [facility] last month. The patient mentions he did not get his aspirin and Plavix since [facility] days at the [facility]. Echo revealed LVEF of 55% with [id number] LVH. Cardiology evaluated the patient and recommended Cardiolite stress test at the earliest possible availability. Past medical history: hypertension, CAD s/p PCI with 4 stents (with 2 stents being placed last month), dyslipidemia Past surgical history: Angiogram x2 (05/2024 and 03/2025) Personal history: Cigarette smoking 30 pack years, history of heavy alcohol use in the past , denies any illicit drugs Family history: Nothing contributory Allergy: No known allergy Patient seen and examined at bedside. Patient is alert and oriented to time, place person and responding to all questions. Eyes: No Pain, No Vision change, No Conjunctivae inflammation, No Eyelid inflammation, No Redness ENT: No Ear pain, No Ear discharge, No Nose pain, No Nose discharge, No Nose congestion, No Mouth pain, No Mouth swelling, No Throat pain, No Throat swelling Cardiovascular: Chest Pain, No Palpitations, No Orthopnea, No Paroxysmal No Dyspnea, No Edema, No Lt Headedness Respiratory: No Cough, No Dry, Shortness of breath, SOB with exertion, No Wheezing, No Hemoptysis, No Pleuritic Pain, No Sputum Gastrointestinal: No Nausea, No Vomiting, No Abdominal Pain, No Diarrhea, No Constipation, No Melena, No Hematochezia Genitourinary: No Dysuria, No Frequency, No Incontinence, No Hematuria, No Retention 05/01/25- the patient was seen at bedside today. He had no new complaints. We will continue with the same management. Telemetry was reviewed. Was placed NPO in the morning for possible Cardiolite stress test today, but we were informed the Cardiolite stress test will be done on Sunday morning. We will keep the patient under observation with medical management till the Cardiolite stress test can be done. Questions and concerns were answered. 05/02/2025: Patient seen at bedside. Patient states having 4/10 pressure-like chest pain. Telemetry was reviewed, patient is to have cardiology stress test on Sunday. Patient denies any shortness of breath, palpitations, nausea, vomiting, headaches. Patient also complained of worms in stool, burning sensation in urine. Stool culture ordered. 05/03/25- the patient was seen at bedside today. The patient complained of chest pain. EKG was done, which showed sinus tachycardia. Troponin level was 13. Stool test for WBCs was negative. The patient was told about the Cardiolite stress test scheduled for tomorrow. All questions were answered and concerns were addressed. 05/04/25- patient was evaluated at bedside today. Patient underwent Cardiolite stress test which was negative for ischemia, large infarct of the anterolateral and mild lateral wall and lvef 37%. Patient was started on Jardiance and ranolazine by Cardiology. The patient continued to have pain and redness in the left antecubital fossa area along with fevers since yesterday. Blood culture was positive for Gram-positive cocci in clusters, so he was started on vancomycin per pharmacy. On examination, patient also had tenderness in the right upper quadrant for which gallbladder ultrasound was done which was unremarkable. 05/05/25- patient was seen at bedside today. He developed fever spikes overnight with reading of 102.9. He also complained of pain in the right chest and right abdomen with right flank pain. He was started on ceftriaxone in addition to the vancomycin he was already on. Repeat blood culture was ordered. Abdomen/pelvis/chest CT with IV contrast was ordered. Objective vital signs Vital Sign Date Time Temp Pulse Resp B/P (MAP) Pulse Ox O2 Delivery O2 Flow Rate FiO2 05/05/25 17:00 99.9 82 18 143/98 (113) 97 99.9 05/05/25 08:00 Room Air* 0 21 Total Intake and Output 05/04/25 05/04/25 05/05/25 15:00 23:00 07:00 Intake Total 880 ml 800 ml Balance 880 ml 800 ml medications Current Medications Medications Dose Ordered Sig/Chacorta Route Start Time Stop Time Status Last Admin Dose Admin Enoxaparin Sodium 40 mg DAILY SC 04/30/25 10:00 05/05/25 09:38 40 MG Acetaminophen 650 mg Q6HP PRN PO 04/29/25 22:30 05/05/25 14:58 650 MG Nitroglycerin 0.4 mg Q5MINP PRN SL 04/29/25 22:30 05/02/25 08:25 0.4 MG Aspirin 81 mg DAILY PO 04/30/25 10:00 05/05/25 09:37 81 MG Clopidogrel Bisulfate 75 mg DAILY PO 04/30/25 10:00 05/05/25 09:37 75 MG Atorvastatin Calcium 40 mg HS PO 04/30/25 22:00 05/04/25 20:37 40 MG Ergocalciferol 50,000 unit Q7D PO 04/30/25 16:30 04/30/25 17:08 50,000 UNIT Ondansetron HCl 4 mg Q4HPRN PRN IV 05/01/25 11:00 05/03/25 13:04 4 MG Sennosides 8.6 mg HS PO 05/02/25 22:00 05/04/25 20:37 8.6 MG Clonazepam 0.25 mg Q12HP PRN PO 05/03/25 13:00 05/04/25 20:38 0.25 MG Metoprolol Succinate 25 mg DAILY PO 05/04/25 10:00 05/05/25 09:37 25 MG Ranolazine 500 mg BID PO 05/04/25 22:00 05/05/25 09:37 500 MG Empaglifozin 10 mg DAILY PO 05/05/25 10:00 05/05/25 09:37 10 MG Vancomycin HCl 0 ml @ 0 mls/hr PER PHARMACY IV 05/04/25 14:30 Vancomycin HCl 250 ml @ 200 mls/hr Q12H IV 05/05/25 04:00 05/05/25 17:11 200 MLS/HR Pantoprazole Sodium 40 mg DAILY@0600 PO 05/06/25 06:00 Ceftriaxone Sodium 50 ml @ 100 mls/hr DAILY@09 IV 05/05/25 09:00 05/05/25 09:37 100 MLS/HR Morphine Sulfate 2 mg Q30M PRN IV 05/05/25 18:00 Examination General: Patient alert and oriented in person, place and time. Patient following commands. HEENT: Normocephalic, atraumatic, moist mucous membranes Respiratory/pulmonary: Clear lungs bilaterally, vesicular murmurs present in almost all lung vaz, no associated crackles or wheezes. Cardiovascular: Normal heart sounds S1 and S2 with no associated murmurs Abdomen: Abdomen nondistended, tenderness to palpation of right upper quadrant, no palpable masses. Extremities: There is no peripheral edema present at the lower extremities. Upper extremity: Redness, tenderness and warmth on left antecubital fossa area Peripheral Pulses: 3+ Radial (R). 3+ Radial (L). 3+ Dorsalis pedis (R). 3+ Dorsalis pedis(L) Skin: No rashes or pruritus, there is no sacral edema present at this time. Neurological: Intact cranial nerves with no focal neurologic deficits laboratory and microbiology Laboratory Tests 05/05/25 05:41 Test 05/05/25 05:41 Range/Units Serum Glucose 121 H 74-106 mg/dL Microbiology Date/Time Source Procedure Growth Status 05/04/25 01:13 Blood Blood Culture - Preliminary Resulted 05/03/25 05:35 Nose MRSA Screen - Final Complete 05/02/25 20:20 Stool Stool Culture - Final Complete 05/02/25 20:20 Stool Shiga Toxin I & II - Final Complete Labs and/or images reviewed: Labs reviewed by me, Image(s) reviewed by me Problem List/Assessment/Plan Problem List/Assessment/Plan # Chest pain, rule out acute coronary syndrome # History of [place] s/p PTCA x 4 JANEL # Hypertensive heart disease # Hyperlipidemia # Costochondritis, rule out # Dyslipidemia -EKG: no acute ST changes -Troponin: 11> 12> 11 -CXR: No acute cardiopulmonary disease -Aspirin 81 mg p.o. daily and Plavix 75 mg hs p.o., Lipitor 40 hs p.o. -Metoprolol 50 mg daily p.o. -Echocardiogram- LVEF 55%, [id number] LVH -repeat EKG showed sinus tachycardia, troponin 13 on 05/03/2025 -Cardiolite stress test - negative for ischemia, large infarct of the anterolateral and mild lateral wall and lvef 37% -started on Jardiance and ranolazine # Bacteremia, Gram-positive # Cellulitis, left arm, likely bacterial, Gram-positive versus Gram-negative -blood culture revealed Gram-positive cocci in clusters -started on vancomycin per pharmacy, added IV ceftriaxone today # intractable abdominal pain, right upper quadrant, ruled out cholecystitis or cholelithiasis -gall bladder ultrasound was unremarkable -chest/abdomen/pelvic CT ordered # Vitamin D deficiency - vit D level is 25.3 - start vit D 50,000 units weekly Diet: Cardiac GI prophylaxis: Famotidine 20 mg p.o. b.i.d. DVT prophylax: Lovenox 40 mg daily SC Goals of care: Full code, discussed for >16 minutes Plan discussed with patient Plan discussed with Plan discussed with: Patient My Orders My Orders Orders - CECILIA BUSTILLOS RESIDENT Procedure Category Date Status Time Creatinine LAB 05/06/25 Verified 04:00 Blood Culture YANCY 05/06/25 Logged 04:00 Ct Chest/Ab/Pl W Con- CT 05/05/25 Resulted Iv Only 15:41 Dietary Evaluation Review Comments: Monitor PO intake, lab values, weight trend, and I/O Expected Outcomes/Goals: Intake to meet >75% estimated needs Lab values to improve FU 3-5 days Visit Coding STANDARD RES Billing Provider: CHETAN COLON MD Date of Service if different f: May 05, 2025 Common Visit Codes: [id number] INP/OBS CARE(HIGH) CECILIA BUSTILLOS RESIDENT May 05, 2025 18:13
[2025-05-06] VITALS (7 sets, daily range): BP systolic 108–139; BP diastolic 76–96; PULSE 17–96; RESP 14–96; TEMP 98.4–99.3; O2SAT 94–96
[2025-05-06] MEDS: PANTOPRAZOLE 40 MG TAB PO SCH (05:13)
[2025-05-06 05:37] LABS: Hematocrit 41.9 % (41.0-53.0); Hemoglobin 14.3 g/dL (13.5-17.5); Mean Corpuscular Hemoglobin 27.0 pg (28.0-32.0); Mean Corpuscular Volume 79.4 fL (80.0-100.0); Nucleated Red Blood Cells % 0.2 %
[2025-05-06 06:11] LABS: Anion Gap 10 (5-15); Calcium 8.9 mg/dL (8.7-10.4); Carbon Dioxide 25 mmol/L (20-31); Chloride 100 mmol/L (98-107); Potassium 3.8 mmol/L (3.5-5.1)
[2025-05-06 06:15] LABS: Sodium 135 mmol/L (136-145)
[2025-05-06 06:16] LABS: Glucose 128 mg/dL (74-106)
[2025-05-06 06:18] LABS: BUN/Creatinine Ratio 17.9 (10.0-20.0); Blood Urea Nitrogen 15 mg/dL (9-23)
--- NOTE | 2025-05-06 17:53 | DVHPNRES ---
Progress Note Date Seen: May 06, 2025 Resident Creating Document: CECILIA BUSTILLOS RESIDENT Medical Necessity Reason Pt with a Central, PICC or Fol: No Subjective Review of Systems Conrad Mejia is a 54-year-old male with past medical history of hypertension, CAD s/p PCI with 4 stents (with 2 stents being placed last month), dyslipidemia was brought in from the [facility] into the ED with the chief complaint of chest pain. The patient mentions he started having chest pain 1 week back, which has been constant, left-sided, nonradiating, pressure-like, rated 8/10 in intensity, which increased on exertion. The patient also mentions having shortness of breath since 1 week. He denies any cough or fever. The pain was relieved with nitroglycerin. The patient has a history of placement of 2 stents in May 2024 in [facility] and 2 stent was placed at [facility] last month. The patient mentions he did not get his aspirin and Plavix since 4 days at the nursing home center. Echo revealed LVEF of 55% with [id number] LVH. Cardiology evaluated the patient and recommended Cardiolite stress test at the earliest possible availability. Past medical history: hypertension, CAD s/p PCI with 4 stents (with 2 stents being placed last month), dyslipidemia Past surgical history: Angiogram x2 (05/2024 and 03/2025) Personal history: Cigarette smoking 30 pack years, history of heavy alcohol use in the past , denies any illicit drugs Family history: Nothing contributory Allergy: No known allergy Patient seen and examined at bedside. Patient is alert and oriented to time, place person and responding to all questions. Eyes: No Pain, No Vision change, No Conjunctivae inflammation, No Eyelid inflammation, No Redness ENT: No Ear pain, No Ear discharge, No Nose pain, No Nose discharge, No Nose congestion, No Mouth pain, No Mouth swelling, No Throat pain, No Throat swelling Cardiovascular: Chest Pain, No Palpitations, No Orthopnea, No Paroxysmal No Dyspnea, No Edema, No Lt Headedness Respiratory: No Cough, No Dry, Shortness of breath, SOB with exertion, No Wheezing, No Hemoptysis, No Pleuritic Pain, No Sputum Gastrointestinal: No Nausea, No Vomiting, No Abdominal Pain, No Diarrhea, No Constipation, No Melena, No Hematochezia Genitourinary: No Dysuria, No Frequency, No Incontinence, No Hematuria, No Retention 05/01/25- the patient was seen at bedside today. He had no new complaints. We will continue with the same management. Telemetry was reviewed. Was placed NPO in the morning for possible Cardiolite stress test today, but we were informed the Cardiolite stress test will be done on Sunday morning. We will keep the patient under observation with medical management till the Cardiolite stress test can be done. Questions and concerns were answered. 05/02/2025: Patient seen at bedside. Patient states having 4/10 pressure-like chest pain. Telemetry was reviewed, patient is to have cardiology stress test on Sunday. Patient denies any shortness of breath, palpitations, nausea, vomiting, headaches. Patient also complained of worms in stool, burning sensation in urine. Stool culture ordered. 05/03/25- the patient was seen at bedside today. The patient complained of chest pain. EKG was done, which showed sinus tachycardia. Troponin level was 13. Stool test for WBCs was negative. The patient was told about the Cardiolite stress test scheduled for tomorrow. All questions were answered and concerns were addressed. 05/04/25- patient was evaluated at bedside today. Patient underwent Cardiolite stress test which was negative for ischemia, large infarct of the anterolateral and mild lateral wall and lvef 37%. Patient was started on Jardiance and ranolazine by Cardiology. The patient continued to have pain and redness in the left antecubital fossa area along with fevers since yesterday. Blood culture was positive for Gram-positive cocci in clusters, so he was started on vancomycin per pharmacy. On examination, patient also had tenderness in the right upper quadrant for which gallbladder ultrasound was done which was unremarkable. 05/05/25- patient was seen at bedside today. He developed fever spikes overnight with reading of 102.9. He also complained of pain in the right chest and right abdomen with right flank pain. He was started on ceftriaxone in addition to the vancomycin he was already on. Repeat blood culture was ordered. Abdomen/pelvis/chest CT with IV contrast was ordered. 05/06/25- patient was evaluated at bedside today. Chest CT done on 05/05/2025 showed dense opacity within the nlbyq-gpsmvta-vmli-left lower lobe with possible cavitary lesion/ abscess within the dependent aspect of the right lower lobe, suggestive of infectious/inflammatory process. Patient was placed in isolation for suspected tuberculosis. AFB, sputum culture, QuantiFERON gold test were ordered. Request for transfer to [facility] was placed as the nursing home center is contracted with [facility]. Objective vital signs Vital Sign Date Time Temp Pulse Resp B/P (MAP) Pulse Ox O2 Delivery O2 Flow Rate FiO2 05/06/25 16:31 98.6 87 20 111/76 (88) 96 98.6 05/06/25 08:00 Room Air* 0 21 Total Intake and Output 05/05/25 05/05/25 05/06/25 15:00 23:00 07:00 Intake Total 200 ml 2250 ml 950 ml Output Total 2400 ml 501 ml Balance 200 ml -150 ml 449 ml medications Current Medications Medications Dose Ordered Sig/Chacorta Route Start Time Stop Time Status Last Admin Dose Admin Enoxaparin Sodium 40 mg DAILY SC 04/30/25 10:00 05/06/25 09:55 40 MG Acetaminophen 650 mg Q6HP PRN PO 04/29/25 22:30 05/06/25 01:52 650 MG Nitroglycerin 0.4 mg Q5MINP PRN SL 04/29/25 22:30 05/02/25 08:25 0.4 MG Aspirin 81 mg DAILY PO 04/30/25 10:00 05/06/25 09:51 81 MG Clopidogrel Bisulfate 75 mg DAILY PO 04/30/25 10:00 05/06/25 09:51 75 MG Atorvastatin Calcium 40 mg HS PO 04/30/25 22:00 05/05/25 21:36 40 MG Ergocalciferol 50,000 unit Q7D PO 04/30/25 16:30 04/30/25 17:08 50,000 UNIT Ondansetron HCl 4 mg Q4HPRN PRN IV 05/01/25 11:00 05/03/25 13:04 4 MG Sennosides 8.6 mg HS PO 05/02/25 22:00 05/05/25 21:36 8.6 MG Clonazepam 0.25 mg Q12HP PRN PO 05/03/25 13:00 05/04/25 20:38 0.25 MG Metoprolol Succinate 25 mg DAILY PO 05/04/25 10:00 05/06/25 09:54 25 MG Ranolazine 500 mg BID PO 05/04/25 22:00 05/06/25 09:51 500 MG Empaglifozin 10 mg DAILY PO 05/05/25 10:00 05/06/25 09:51 10 MG Vancomycin HCl 0 ml @ 0 mls/hr PER PHARMACY IV 05/04/25 14:30 Vancomycin HCl 250 ml @ 200 mls/hr Q12H IV 05/05/25 04:00 05/06/25 16:45 200 MLS/HR Pantoprazole Sodium 40 mg DAILY@0600 PO 05/06/25 06:00 05/06/25 05:13 40 MG Ceftriaxone Sodium 50 ml @ 100 mls/hr DAILY@09 IV 05/05/25 09:00 05/06/25 09:50 100 MLS/HR Morphine Sulfate 2 mg Q30M PRN IV 05/05/25 18:00 Examination General: Patient alert and oriented in person, place and time. Patient following commands. HEENT: Normocephalic, atraumatic, moist mucous membranes Respiratory/pulmonary: Clear lungs bilaterally, vesicular murmurs present in almost all lung vaz, no associated crackles or wheezes. Cardiovascular: Normal heart sounds S1 and S2 with no associated murmurs Abdomen: Abdomen nondistended, tenderness to palpation of right upper quadrant, no palpable masses. Extremities: There is no peripheral edema present at the lower extremities. Upper extremity: Redness, tenderness and warmth on left antecubital fossa area Peripheral Pulses: 3+ Radial (R). 3+ Radial (L). 3+ Dorsalis pedis (R). 3+ Dorsalis pedis(L) Skin: No rashes or pruritus, there is no sacral edema present at this time. Neurological: Intact cranial nerves with no focal neurologic deficits laboratory and microbiology Laboratory Tests 05/06/25 04:54 Test 05/06/25 04:54 Range/Units Serum Glucose 128 H 74-106 mg/dL Microbiology Date/Time Source Procedure Growth Status 05/04/25 01:13 Blood Blood Culture - Final Staphylococcus aureus Complete 05/03/25 05:35 Nose MRSA Screen - Final Complete 05/02/25 20:20 Stool Stool Culture - Final Complete 05/02/25 20:20 Stool Shiga Toxin I & II - Final Complete Labs and/or images reviewed: Labs reviewed by me, Image(s) reviewed by me Problem List/Assessment/Plan Problem List/Assessment/Plan # Chest pain, rule out acute coronary syndrome # History of [place] s/p PTCA x 4 JANEL # Hypertensive heart disease # Hyperlipidemia # Costochondritis, ruled out # Dyslipidemia -EKG: no acute ST changes -Troponin: 11> 12> 11 -CXR: No acute cardiopulmonary disease -Aspirin 81 mg p.o. daily and Plavix 75 mg hs p.o., Lipitor 40 hs p.o. -Metoprolol 50 mg daily p.o. -Echocardiogram- LVEF 55%, [id number]-[id number] LVH -repeat EKG showed sinus tachycardia, troponin 13 on 05/03/2025 -Cardiolite stress test - negative for ischemia, large infarct of the anterolateral and mild lateral wall and lvef 37% -started on Jardiance and ranolazine # Bacteremia, Gram-positive # Cellulitis, left arm, likely bacterial, Gram-positive versus Gram-negative -blood culture revealed Gram-positive cocci in clusters -started on vancomycin per pharmacy and IV ceftriaxone # Intractable abdominal pain, right upper quadrant, ruled out cholecystitis or cholelithiasis -gall bladder ultrasound was unremarkable -chest/abdomen/pelvic CT ordered # Cavitary lesion/abscess in right lower lobe, rule out tuberculosis -patient placed in isolation -AFB sputum culture -QuantiFERON gold # Vitamin D deficiency - vit D level is 25.3 - start vit D 50,000 units weekly Diet: Cardiac GI prophylaxis: Famotidine 20 mg p.o. b.i.d. DVT prophylax: Lovenox 40 mg daily SC Goals of care: Full code, discussed for >16 minutes Plan discussed with patient Plan discussed with Plan discussed with: Patient My Orders My Orders Orders - CECILIA BUSTILLOS RESIDENT Procedure Category Date Status Time * Rn Delivery CONS 05/06/25 Transmitted Consult 10:12 Isolation Order ORDERS 05/06/25 Transmitted 13:35 Afb Cult/Smear Broth YANCY 05/08/25 Logged Suscep 05:00 Afb Cult/Smear Broth YANCY 05/09/25 Logged Suscep 05:00 Afb Cult/Smear Broth YANCY 05/10/25 Logged Suscep 05:00 Quantiferon-Tb Gold LAB 05/06/25 In Process 13:38 Vancomycin Per VALENTINE 05/06/25 In Process Pharmacy Protoc 16:23 Vancomycin,Trough LAB 05/07/25 Verified 15:00 Creatinine LAB 05/07/25 Verified 04:00 Dietary Evaluation Review Comments: Monitor PO intake, lab values, weight trend, and I/O Expected Outcomes/Goals: Intake to meet >75% estimated needs Lab values to improve FU 3-5 days Visit Coding STANDARD RES Billing Provider: CHETAN COLON MD Date of Service if different f: May 06, 2025 Common Visit Codes: 32218-[id number] INP/OBS CARE(HIGH) CECILIA BUSTILLOS RESIDENT May 06, 2025 17:53
[2025-05-06] MEDS: VANCOMYCIN 1GM/250ML KIT 250 ML IV SCH (23:32)
[2025-05-07 01:00] VITALS: BP 119/84; PULSE 80; RESP 14; TEMP 99.2; O2SAT 95
--- NOTE | 2025-05-07 11:06 | DVHDSRES ---
Discharge Summary Date of Admission Resident Creating Document: CECILIA BUSTILLOS RESIDENT Apr 29, 2025 at 22:30 Date of Discharge: May 07, 2025 Admitting Diagnosis chest pain, rule out ACS Labs/Diagnostic Data: Laboratory Results Test 05/06/25 15:09 05/06/25 14:40 05/06/25 04:54 05/03/25 13:06 Vancomycin Level Trough 8.6 ug/mL (5-10) White Blood Count 7.0 10^3/uL (4.4-10.8) Red Blood Count 5.28 10^6/uL (4.5-5.90) Hemoglobin 14.3 g/dL (13.5-17.5) Hematocrit 41.9 % (41.0-53.0) Mean Corpuscular Volume 79.4 fL (80.0-100.0) Mean Corpuscular Hemoglobin 27.0 pg (28.0-32.0) Mean Corpuscular Hemoglobin Concent 34.0 g/dL (32.0-36.0) Red Cell Distribution Width 13.9 % (11.8-14.3) Platelet Count 171 10^3/uL (140-450) Mean Platelet Volume 7.5 fL (6.9-10.8) Neutrophils (%) (Auto) 70.0 % (37.0-80.0) Lymphocytes (%) (Auto) 14.7 % (10.0-50.0) Monocytes (%) (Auto) 13.0 % (0.0-12.0) Eosinophils (%) (Auto) 1.8 % (0.0-7.0) Basophils (%) (Auto) 0.5 % (0.0-2.0) Neutrophils # (Auto) 4.9 10 ^3/uL (1.6-8.6) Lymphocytes # (Auto) 1.0 10 ^3/uL (0.4-5.4) Monocytes # (Auto) 0.9 10 ^3/uL (0-1.3) Eosinophils # (Auto) 0.1 10 ^3/uL (0-0.8) Basophils # (Auto) 0 10 ^3/uL (0-0.2) Nucleated Red Blood Cells 0.2 % Sodium Level 135 mmol/L (136-145) Potassium Level 3.8 mmol/L (3.5-5.1) Chloride Level 100 mmol/L (98-107) Carbon Dioxide Level 25 mmol/L (20-31) Anion Gap 10 (5-15) Blood Urea Nitrogen 15 mg/dL (9-23) Creatinine 0.84 mg/dL (0.700-1.30) Glomerular Filtration Rate Calc 104 mL/min (>90) BUN/Creatinine Ratio 17.9 (10.0-20.0) Serum Glucose 128 mg/dL (74-106) Calcium Level 8.9 mg/dL (8.7-10.4) Troponin I High Sensitivity 13 ng/L (</=54) Test 05/02/25 21:19 05/02/25 20:20 04/30/25 17:26 04/30/25 15:40 Urine Color Light-yellow (Yellow) Urine Clarity Clear (Clear) Urine pH 5.5 (5.0-9.0) Urine Specific [place] 1.016 (1.001-1.035) Urine Protein Negative (Negative) Urine Ketones Negative (Negative) Urine Blood Negative /uL (Negative) Urine Nitrite Negative (Negative) Urine Bilirubin Negative (Negative) Urine Urobilinogen Normal mg/dL (Negative) Urine Leukocyte Esterase Negative /uL (Negative) Urine RBC <1 /hpf (0 - 3) Urine Microscopic WBC 2 /HPF (0-3) Urine Squamous Epithelial Cells None seen /hpf (<5) Urine Bacteria None seen /hpf (None Seen) Urine Glucose Normal mg/dL (Normal) Urine Opiates Screen Neg (NEGATIVE) Urine Fentanyl Screen Neg (NEGATIVE) Urine Barbiturates Screen Neg (NEGATIVE) Urine Phencyclidine Screen Neg (NEGATIVE) Urine Amphetamines Screen Neg (NEGATIVE) Urine Benzodiazepines Screen Neg (NEGATIVE) Urine Cocaine Screen Neg (NEGATIVE) Urine Cannabinoids Screen Neg (NEGATIVE) Stool for White Cells None seen Influenza Type A Antigen Negative (Negative) Influenza Type B Antigen Negative (Negative) SARS-CoV-2 Antigen (Rapid) Negative (NEGATIVE) Prothrombin Time 10.9 sec (9.3-11.8) Prothrombin Time INR 1.03 (0.9-1.15) Activated Partial Thromboplast Time 26.7 SEC (24.5-34.5) Test 04/30/25 04:40 Hemoglobin A1c 5.3 % A1C (<5.7) Total Bilirubin 0.3 mg/dL (0.2-1.0) Aspartate Amino Transferase (AST) 19 U/L (13-40) Alanine Aminotransferase (ALT) 24 U/L (7-40) Alkaline Phosphatase 76 U/L (46-116) Total Protein 6.2 g/dL (5.7-8.2) Albumin 3.6 g/dL (3.2-4.8) Triglycerides Level 207 mg/dL (< 150) Cholesterol Level 137 mg/dL (< 200) LDL Cholesterol 76 mg/dL (< 100) HDL Cholesterol 30 mg/dL (40-59) Vitamin B12 Level 457 pg/mL (211-911) Vitamin D 25-Hydroxy 25.3 ng/mL (30.0-100) Thyroid Stimulating Hormone (TSH) 1.15 uIU/mL (0.55-4.78) Other Laboratory Tests 05/06/25 04:54 Brief Hx & Hospital Course: Conrad Mejia is a 54-year-old male with past medical history of hypertension, CAD s/p PCI with 4 stents (with 2 stents being placed last month), dyslipidemia was brought in from the [facility] into the ED with the chief complaint of chest pain. The patient mentions he started having chest pain 1 week back, which has been constant, left-sided, nonradiating, pressure-like, rated 8/10 in intensity, which increased on exertion. The patient also mentions having shortness of breath since 1 week. He denies any cough or fever. The pain was relieved with nitroglycerin. The patient has a history of placement of 2 stents in May 2024 in [facility] and 2 stent was placed at [facility] last month. The patient mentions he did not get his aspirin and Plavix since [facility]Echo revealed LVEF of 55% with styj-jo-gzrcjcjd LVH. Cardiology evaluated the patient and recommended Cardiolite stress test at the earliest possible availability. Hospital course: Patient was evaluated every day and telemetry was reviewed. He underwent Cardiolite stress test 05/04/2025 which was negative for ischemia, large infarct of the anterolateral light mild lateral wall and LVEF of 37%. Started on ranolazine and Jardiance by cardiology. Patient started developing redness and BNP in the left antecubital fossa started having fevers. Blood culture was done which was positive for Staph aurues and patient was started on IV vancomycin per pharmacy. Repeat blood culture was negative after 24 hours of incubation. Patient also complained of pain in the right upper quadrant and right chest. Gallbladder Ultrasound was unremarkable. Chest CT done on 05/05/2025 showed dense opacity within the right smdso-otothia-bkvh-left lower lobe with possible cavitary lesion/ abscess within the dependent aspect of the right lower lobe, suggestive of infectious/inflammatory process. Patient was put in isolation and quantiferon gold and AFB Sputum culture was ordered to rule out tuberculosis. Patient was transferred to [facility] as the senior care center is contracted with them. Past medical history: hypertension, CAD s/p PCI with 4 stents (with 2 stents being placed last month), dyslipidemia Past surgical history: Angiogram x2 (05/2024 and 03/2025) Personal history: Cigarette smoking 30 pack years, history of heavy alcohol use in the past , denies any illicit drugs Family history: Nothing contributory Allergy: No known allergy General: Patient alert and oriented in person, place and time. Patient following commands. HEENT: Normocephalic, atraumatic, moist mucous membranes Respiratory/pulmonary: Clear lungs bilaterally, vesicular murmurs present in almost all lung vaz, no associated crackles or wheezes. Cardiovascular: Normal heart sounds S1 and S2 with no associated murmurs Abdomen: Abdomen nondistended, tenderness to palpation of right upper quadrant, no palpable masses. Extremities: There is no peripheral edema present at the lower extremities. Upper extremity: Redness, tenderness and warmth on left antecubital fossa area Peripheral Pulses: 3+ Radial (R). 3+ Radial (L). 3+ Dorsalis pedis (R). 3+ Dorsalis pedis(L) Skin: No rashes or pruritus, there is no sacral edema present at this time. Neurological: Intact cranial nerves with no focal neurologic deficits Operations or Procedures 1.PROCEDURE(s): CXRP - CHEST PORTABLE REASON: CP ORDER NUMBER(s): [id number], ACCESSION NUMBER(s): [id number] CLINICAL HISTORY: CP TECHNIQUE: Single view of the chest was obtained. COMPARISON: CT ANGIO CHEST - AORTA on DOS: 03/09/25, XR CHEST 1 VIEW on DOS: 03/09/25, XR CHEST 1 VIEW on DOS: 02/07/25, XR CHEST 1 VIEW on DOS: 05/26/24 FINDINGS: The heart size and pulmonary vasculature are normal. The lungs are clear. IMPRESSION: NO ACUTE CARDIOPULMONARY PROCESS. 2.PROCEDURE(s): CWMM - CARDIOLITE MULTIPLE REASON: Chest pain ORDER NUMBER(s): [id number], ACCESSION NUMBER(s): [id number] APPROVED REPORT Exam: Nuclear Stress Test BMI: 0 Stress Test Details HR Max Heart Rate (APMHR): 166.916869 bpm Target HR (85% APMHR): 141.841442 bpm BP ECG Stress ECG Conclusion large infarct of the anterolaterla and mild lateral wall lvef 37% NM EXAM: Myocardial Perfusion REST/STRESS Imaging Protocol: Rest Tc-99m/Stress Tc-99m 2 days Resting Data Rest SPECT myocardial perfusion imaging was performed in supine position 60 minutes following the intravenous injection of 16.2 mCi of Tc-99m Sestamibi. Time of rest injection: 09:00 Date: 05/02/2025 Time of rest imagin:00 Date: 05/02/2025 Administration Route: IV Administration Site: Right Arm Pharmacologic Stress Pharmacologic stress test was performed by injecting Regadenoson 0.4 mg IV push followed by the intravenous injection of 22.0 mCi of Tc-99m Sestamibi. Time of stress injection: 08:30 Date: 05/04/2025 Time of stress imagin:30 Date: 05/04/2025 Administration Route: IV Administration Site: Right Arm Gated Stress SPECT was performed 60 minutes after stress injection. The images were gated to evaluate regional wall motion and calculate left ventricular ejection fraction. Stress only was performed in the Supine position. Nuclear Conclusion Nuclear Findings: negative for ischemia large infarct of the anterolaterla and mild lateral wall lvef 37% 3.PROCEDURE(s): GBUS - GALLBLADDER REASON: ruq pain ORDER NUMBER(s): [id number], ACCESSION NUMBER(s): [id number] Technique: Real-time ultrasound imaging of the abdomen was performed with grayscale and color Doppler. Indication: ruq pain Comparison: None Findings: Liver measures 17.6 cm. It is increased in echogenicity and echotexture without focal mass. Portal vein is normal in caliber and demonstrates normal hepatopetal flow. Gallbladder demonstrates no evidence for cholelithiasis. There is no pericholecystic fluid. The wall thickness is normal. The common bile duct is nonvisualized. No intrahepatic biliary ductal dilatation. The right kidney measures 11.3 cm. There is no hydronephrosis or sonographic evidence of nephrolithiasis. The visualized portion of the pancreas is unremarkable. The visualized portion of the IVC is unremarkable. Impression: Echogenic liver which can be seen with hepatic steatosis, cirrhosis. No Evidence for Cholelithiasis . CBD nonvisualized. 4.PROCEDURE(s): CAPIV - CT CHEST/AB/PL W CON- IV ONLY REASON: right chest and flank pain and tenderness ORDER NUMBER(s): [id number], ACCESSION NUMBER(s): [id number] EXAM: CT CT CHEST/AB/PL W CON- IV ONLY History: right chest and flank pain and tenderness Comparison Study: XY CHEST PORTABLE on DOS: 04/29/25, CT ANGIO CHEST - AORTA on DOS: 03/09/25, XR CHEST 1 VIEW on DOS: 03/09/25, XR CHEST 1 VIEW on DOS: 02/07/25, XR CHEST 1 VIEW on DOS: 05/26/24 TECHNIQUE: A digital turntable man image was obtained. During the uneventful, intravenous administration of contrast material, multislice data acquisition was obtained through the chest, abdomen, and pelvis. The data set was subsequently reconstructed into axial, coronal, and sagittal images. Radiation Dose : CTDI vol 13.1 mGy, DLP 972.2 mGy*cm. Findings: CT chest: Evaluation is degraded by respiratory motion. Lungs: Dense opacity within the qfcog-qcmqrzw-ziwg-left lower lobe. Suspected cavitary lesion/ abscess within the dependent aspect of the right lower lobe measuring 19 mm. Pleura: Trace right pleural effusion. Heart/Great vessels: There is mild cardiomegaly. There is no pericardial effusion. The aorta is unremarkable. Mediastinum: Unremarkable. Soft tissues/Bones: Unremarkable CT abdomen/pelvis: Evaluation is degraded by motion artifact. Liver: Diffuse hypoattenuation of the liver suggestive of hepatic steatosis. Spleen: Unremarkable. Pancreas: Unremarkable. Gallbladder: Contracted in appearance. Adrenals: Unremarkable. Kidneys: Too small to characterize right renal lesion. No hydronephrosis. Pelvic Viscera: Unremarkable. Vasculature: Atherosclerotic aortoiliac calcification. Retroperitoneum: Unremarkable. Bowel: Fecal distention of the rectum with moderate stool burden. No bowel obstruction. Musculoskeletal: Unremarkable. Soft tissues: Unremarkable. Impression: 1. Dense opacity within the qdtxo-gwauqwm-tdqm-left lower lobe with possible cavitary lesion/ abscess within the dependent aspect of the right lower lobe. Findings are most suggestive of infectiou/inflammatory process. Posttreatment follow-up is suggested to ensure appropriate resolution. 2. No acute abnormality identified within the abdomen or pelvis. 3. Incidental findings as detailed. 5.PROCEDURE(s): ECIDC - ECHO 2D MODE CARDIAC DOP REASON: History of coronary stent, chest pain ORDER NUMBER(s): [id number], ACCESSION NUMBER(s): [id number] APPROVED REPORT EXAM: Two-dimensional and M-mode echocardiogram with Doppler and color Doppler. Blood Pressure: 131/88 mmHg INDICATION Chest Pain History of Coronary Stent RISK FACTORS Height: 6', Weight: 222 DIMENSIONS LVDd 4.9 (3.8-5.7cm) LA (2D) 4.0 (1.9-4.0cm) Aortic Root 4.0 (2.0- 3.7cm) LVDs 3.4 (2.5-4.0cm) LA (MM) (1.9-4.0cm) Aortic Cusp Exc 2.1 (1.5- 2.0cm) EF (%) 57.0 (55-70%) Rt. Atrium 4.2 (1.9-4.0cm) Asc. Aorta cm IVSd 1.1 (0.7-1.1cm) RV (D) (1.8-2.4cm) PWd 1.0 (0.7-1.1cm) Mitral Valve Mitral Mitral Stenosis E wave 0.50m/s MV Mean GR. mmHg A wave 1.00m/s MV Peak GR. mmHg E/A ratio 0.5 2D MVA cm2 Aortic Valve Aortic Valve Aortic Stenosis V1 0.90m/s AO Mean GR. 5mmHg V2 1.50m/s AO Peak GR. 9mmHg LVOT Diameter 2.3 (1.8-2.4cm) Doppler PATTIE 2.49cm2 Pulmonic Valve V2 0.90m/s Tricuspid Valve TR Velocity 2.30m/s RVSP 30mmHg Conclusion lvef 55% mild to moderate LVH normal rv function no severe valve abnromality noted Condition at Discharge: Unstable Final Diagnosis/Problems List Chest pain, ruled out acute coronary syndrome Bacteremia, Gram-positive Cellulitis, left arm, likely Gram-positive History of HI s/p PTCA x 4 JANEL Hypertensive heart disease Hyperlipidemia Costochondritis, ruled out Dyslipidemia Intractable abdominal pain, right upper quadrant, ruled out cholecystitis Cavitary lesion/abscess in right lower lobe,possible tuberculosis Vitamin D deficiency Discharge Disposition: Acute Care Facility Discharge Instruct/Medications Diet: Cardiac 2g Na,low cholest Activity: No Restrictions, As Tolerated Medications: As per EMR Scheduled Lisinopril (Lisinopril), DAILY, (Reported) Discharge Statement: "Patient was advised to return to the ER or call 911 if any headaches, dizziness, shortness of breath, chest pain, abdominal pain, bleeding, fevers, or worsening of medical condition. Patient was counseled about treatment plan, medications, possible side effects, patientverbalized understanding. All questions were answered to the best of my ability. This discharge took greater then 30 minutes in planning, reviewing documentation, counseling the patient, and discussing with other team members." ASSESSMENT ASSESSMENT Assessment chest pain ro acs Visit Coding STANDARD RES Billing Provider: CHETAN COLON MD Date of Service if different f: May 07, 2025 Common Visit Codes: 09598-GDL/OBS DISCH DAY >30min CECILIA BUSTILLOS RESIDENT May 07, 2025 11:06
== END 2025-05-07 02:01 | disposition short-term general hospital (02) | DRG 206 ==
LOC: EDBD 13:07 → EEVIPCON 13:07 → ER 13:07 → OVERFLOW 22:30 → TELE-EAST 23:30 → EAST 05-06 06:05
PROVIDERS: ADMIT Student in an Organized Health Care Education/Training Program; ATTEND Student in an Organized Health Care Education/Training Program
DX: M94.0 Chondrocostal junction syndrome [Tietze] (principal); A15.9 Respiratory tuberculosis unspecified; L03.114 Cellulitis of left upper limb; I11.9 Hypertensive heart disease without heart failure; Z68.30 Body mass index [BMI] 30.0-30.9, adult; I25.10 Atherosclerotic heart disease of native coronary artery without angina pectoris; E78.5 Hyperlipidemia, unspecified; E55.9 Vitamin D deficiency, unspecified; Z20.822 Contact with and (suspected) exposure to COVID-19; E66.9 Obesity, unspecified; I25.2 Old myocardial infarction; Z95.5 Presence of coronary angioplasty implant and graft; Z87.891 Personal history of nicotine dependence
CPT/HCPCS: 36415; 71045; 71260; 74177; 76705; 78452; 80048; 80053; 80061; 80202; 80307; 81001; 82306; 82607; 83036; 84443; 84484; 85025; 85048; 85610; 85730; 87040; 87045; 87070; 87077; 87081; 87147; 87186; 87205; 87426; 87427; 87804; 93005; 93017; 93306; 99291; 99292; G0378; J2405; J2470